=== PATIENT | male | born 1955 | race Caucasian/White ===

== ENCOUNTER → 2022-02-01 16:28 | Outpatient (BNVA) | payer MEDICARE, OTHER, SELFPAY | PROVIDERS: Family Provider Family Medicine; PCP Family Medicine; Visit Provider Family Medicine | DX: I48.91 Unspecified atrial fibrillation (principal) | CPT/HCPCS: 80053; 84443; 85025 ==

== ENCOUNTER 2022-02-08 14:01 | Outpatient (CLI) | payer MEDICARE, OTHER, SELFPAY ==
--- NOTE | 2022-02-08 14:15 | USCV_ITS ---
Reji Fuentes Age: 67 Gender: M : 1955 Exam Date: 02/08/2022 14:23 Ordering Phys: Haider Abraham MD Technologist: Cecilio Johnson Exam Location: [facility] [place] Indication: new afib, abnormal ekg BP: 134 / 72 HR: 96 Rhythm: Atrial fibrillation Technical Quality: Adequate MEASUREMENTS (Male / Female) Normal Values 2D ECHO LV Diastolic Diameter PLAX 2.7 cm 4.2 - 5.9 / 3.9 - 5.3 cm LV Systolic Diameter PLAX 1.7 cm IVS Diastolic Thickness 1.4 cm 0.6 - 1.0 / 0.6 - 0.9 cm IVS Systolic Thickness 1.8 cm LVPW Diastolic Thickness 1.2 cm 0.6 - 1.0 / 0.6 - 0.9 cm LVPW Systolic Thickness 1.1 cm LVOT Diameter 2.3 cm LV Ejection Fraction 2D Teich 67.9 % LV Ejection Fraction MOD 2C 68.3 % LV Ejection Fraction 2C AL 70.1 % LA Diameter 3.6 cm LA Width 3.8 cm LA Height 4.6 cm RA Width 3.7 cm RA Height 4.3 cm Aorta at Sinotubular Diameter 3.5 cm IVC Diameter 1.9 cm M-MODE Aortic Annulus Diameter 3.9 cm LA Ao Ratio MM 0.9 MV E Point Septal Separation 0.4 cm DOPPLER AV Peak Velocity 141.0 cm/s LVOT Peak Velocity 113.0 cm/s AV Area Cont Eq vti 2.9 cm squared AV Area Cont Eq pk 3.3 cm squared MV Peak Velocity 136.0 cm/s MV Area PHT 5.4 cm squared MV E' Velocity 62.8 cm/s Mitral E to MV E' Ratio 7.4 Mitral E to LV E' Lateral Ratio 8.1 Mitral E to LV E' Septal Ratio 6.9 TR Peak Velocity 215.0 cm/s TR Peak Gradient 18.5 mmHg TR Mean Velocity 170.3 cm/s TR Mean Gradient 11.9 mmHg TR Velocity Time Integral 44.8 cm Right Atrial Pressure 3.0 mmHg Pulmonary Artery Systolic Pressu 21.5 mmHg PV Peak Velocity 90.3 cm/s RV Acceleration Time 0.1 s RV Ejection Time 0.2 s RV AcT/ET 0.3 FINDINGS Left Ventricle Normal left ventricular size and systolic function, EF 69 %. No regional wall motion abnormalities. Mild left ventricular hypertrophy. Right Ventricle The right ventricle is normal in size and function. Right Atrium The right atrium is normal in size. Left Atrium The left atrium is normal in size. Mitral Valve Mild mitral valve regurgitation. Aortic Valve Thickened aortic valve. Tricuspid Valve No gross abnormalities noted Pulmonic Valve Pulmonic valve not well visualized. Pericardium Normal pericardium without effusion. Aorta Normal aortic annulus size. IVC Normal inferior vena cava. CONCLUSIONS Normal left ventricular size and systolic function, EF 69 %. No regional wall motion abnormalities. Mild left ventricular hypertrophy. Mild mitral valve regurgitation. Thickened aortic valve. There is no pericardial effusion. There are no intracardiac masses. No similar previous studies are available for comparison Dr Joe Tarango MD FAC (Electronically Signed) Final Date: 08 February 2022 20:14 S
== END 2022-02-08 14:02 | disposition home or self-care (01) ==
LOC: RAD 14:01
PROVIDERS: PCP Family Medicine; Visit Provider Family Medicine
DX: I48.91 Unspecified atrial fibrillation (principal); I08.0 Rheumatic disorders of both mitral and aortic valves
CPT/HCPCS: 93306

== ENCOUNTER → 2022-03-18 12:07 | Outpatient (BNVA) | payer MEDICARE, OTHER, SELFPAY | PROVIDERS: PCP Family Medicine; Visit Provider Internal Medicine | DX: I48.91 Unspecified atrial fibrillation (principal); I10 Essential (primary) hypertension; Z79.01 Long term (current) use of anticoagulants; F17.290 Nicotine dependence, other tobacco product, uncomplicated; R94.31 Abnormal electrocardiogram [ECG] [EKG] | CPT/HCPCS: 93005; 99204 ==

== ENCOUNTER → 2022-04-19 10:17 | Outpatient (BNVA) | payer MEDICARE, OTHER, SELFPAY | PROVIDERS: PCP Family Medicine; Visit Provider Nurse Practitioner Family | DX: I48.91 Unspecified atrial fibrillation (principal); R94.31 Abnormal electrocardiogram [ECG] [EKG] | CPT/HCPCS: 93005; 99214 ==

== ENCOUNTER → 2022-05-13 10:44 | Outpatient (BNVA) | payer MEDICARE, OTHER, SELFPAY | PROVIDERS: PCP Family Medicine; Visit Provider Dermatology | DX: R23.4 Changes in skin texture (principal) | CPT/HCPCS: 88305; 88312 ==

== ENCOUNTER 2022-05-21 10:18 | Day surgery (SDC) | payer MEDICARE, OTHER, SELFPAY ==
[2022-05-19 08:59] VITALS: BMI 40.1
--- NOTE | 2022-05-21 10:23 | USCV_ITS ---
Reji Fuentes Age: 67 Gender: M : 1955 Exam Date: 05/21/2022 12:00 Ordering Phys: Lore Diaz Technologist: MARLINE Exam Location: [facility] – [place], [place] Indication: afib BP: / HR: Rhythm: Sinus Technical Quality: MEASUREMENTS (Male / Female) Normal Values Medications Complications None Proc. Components After anesthesia team administered sedation, we proceeded with RANDALL probe insertion. FINDINGS Left Ventricle LV systolic function is normal Right Ventricle RV is grossly normal Right Atrium Dilated Left Atrium Dilated LA Appendage No left atrial appendage thrombus seen IA Septum Grossly normal Mitral Valve Structurally normal. Mild mitral regurgitation. Aortic Valve Structurally aortic valve. Mild aortic regurgitation. Tricuspid Valve Normal Pulmonic Valve Grossly normal Pericardium Normal Aorta Mild atherosclerotic plaque CONCLUSIONS LV systolic function is normal. Biatrial dilation No left atrial appendage thrombus seen Mild mitral regurgitation Mild aortic regurgitation Mild atherosclerotic plaque Jake Nick MD (Electronically Signed) Final Date: 23 May 2022 13:27 S
--- NOTE | 2022-05-21 10:24 | ECG_ITS ---
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 Measurements Intervals [place] Rate: 74 P: 0 MI: 0 QRS: -29 QRSD: 125 T: 5 QT: 449 QTc: 501 Interpretive Statements ATRIAL FIBRILLATION MODERATE INTRAVENTRICULAR CONDUCTION DELAY [105+ ms QRS DURATION, 80+ ms Q/S IN V1/V2, NO Q AND 60+ ms R IN I/aVL/V5/V6] PROLONGED QT INTERVAL No previous ECG available for comparison Electronically Signed On 05-21-2022 21:54:32 FLOORWORKER LASTING by Joe Tarango M.D. [id number]
[2022-05-21 10:35] VITALS: BP 158/80; PULSE 72; RESP 18; TEMP 36.4; O2SAT 98
[2022-05-21] MEDS: sodium chloride 0.9% 1,000 ML 30 ML IV (10:37)
--- NOTE | 2022-05-21 11:29 | P.HP_ITS ---
Same Day Surgery H&P Indication for Procedure/HPI DATE OF PROCEDURE: May 21, 2022 CHIEF COMPLAINT/INDICATIONFOR SURGICAL PROCEDURE: Atrial fibrillation PREOP DIAGNOSIS: Atrial fibrillation PLANNED PROCEDURE: Operation Date: 05/21/22 12:00 Proposed Procedures [place] [id number],I48.91(Not Applicable) - Keron Diana Cardioversion(Not Applicable) - Jake Nick M.D 67-year-old male with recent diagnosis of atrial fibrillation who is here for for RANDALL/cardioversion. Has shortness of breath and fatigue. EKG is showing atrial fibrillation with a heart rate of 74 bpm. ROS CONSTITUTIONAL: No fever chills weight loss or gain or night sweats. [] HEENT: Normocephalic, atraumatic.[] RESPIRATORY: No cough, sputum, hemoptysis or wheezing.[] CARDIOVASCULAR:Shortness of breath GI: no nausea vomiting diarrhea. [] RELIEF PHARMACIST: No numbness, tingling, weakness or loss of function in any part of the body. [] MUSCULOSKELETAL: No knee or joint pain or rashes. [] Medications/Allergies* Home Medications Medication Instructions Recorded Confirmed Type cetirizine 10 mg tablet 10 mg PO DAILY 02/17/22 05/20/22 History amlodipine 10 mg tablet 5 mg PO .QPM 04/19/22 05/20/22 History azelastine 137 mcg (0.1 %) nasal 2 spray intranasal DAILY PRN 04/19/22 05/21/22 History spray aerosol allergies multivit with minerals-folic 1 cap PO DAILY 05/19/22 05/20/22 History acid-lycopene 0.4 mg-600 mcg capsule (Men's Daily) Allergies/Adverse Reactions Allergy/AdvReac Type Severity Reaction Status Date / Time No Known Allergies Allergy Verified 05/21/22 10:49 Current Medications: Generic Name Dose Route Start Last Admin Trade Name Freq PRN Reason Stop Dose Admin Sodium Chloride 1,000 mls @ 30 mls/hr 05/21/22 10:30 05/21/22 10:37 Sodium Chloride 0.9% IV 05/22/22 10:29 30 mls/hr .Q24H ERIN Administration Pertinent History/Comorbid Conditions* Medical History (Updated 03/21/22 @ 14:31 by Jake Nick M.D) HTN (hypertension) Surgical History (Updated 04/06/21 @ 11:55 by Laine Gonzalez DO) No pertinent past surgical history Social History Smoking and tobacco status: former smoker (cigars) History of recent travel: No Pertinent Exam Findings alert, oriented x 3 and clear to auscultation bilaterally Irregularly irregular.Normal heart rate Conscious Sedation Assessment Anesthesia team administering sedation Recommendations Surgery/Procedure today (RANDALL/ Cardioversion) Coding Level of Care Code Acute Code for Chg Mimi
--- NOTE | 2022-05-21 11:42 | ANES.PREANE2 ---
Pre-Anesthetic Assessment Height/Weight: Height 1.93 m Weight 149.685 kg Temp Pulse Resp BP Pulse Ox O2 Del Method 97.6 F 72 18 158/80 98 05/21/22 10:35 05/21/22 10:35 05/21/22 10:35 05/21/22 10:35 05/21/22 10:35 05/21/22 10:35 Preop Diagnosis: Atrial fibrillation Operation Date: 05/21/22 12:00 Proposed Procedures [place] [id number],I48.91(Not Applicable) - Jake Nick M.D s Cardioversion(Not Applicable) - Jake Nick M.D Familial anesthetic complications: none Was Beta Barbara taken within 24 hours: Yes Was Clonidine taken within 24 hours: N/A Last intake: Intake Last Liquid Date 05/20/22 Last Liquid Time 20:00 Last Solid Date 05/20/22 Last Solid Time 20:00 Social No alcohol and No tobacco (history) Exam alert, oriented x 3, clear to auscultation bilaterally and regular rate & rhythm Airway Submandibular: within normal limits Cervical ROM: within normal limits Mallampati: Class I Dentition: full Pulmonary Sleep Apnea (CPAP) CV/HEM Atrial Fibrillation and Hypertension None reported Hepatic None reported GI None reported Metabolic Morbid Obesity [facility] [place] None reported Neuropsych None reported Anesthetic Plan ASA status: 3 Anesthesia: MAC Risk of > 500 ml blood loss (7ml/kg in children): No Medications/Allergies Home Medications Medication Instructions Recorded Confirmed Last Taken Type cetirizine 10 mg tablet 10 mg PO DAILY 02/17/22 05/20/22 05/21/22 08:00 History amiodarone 200 mg tablet 200 mg PO DIRECTED #90 tabs 03/18/22 05/20/22 05/21/22 08:00 Rx apixaban 5 mg tablet (Eliquis) 5 mg PO BID #180 tabs 03/18/22 05/20/22 05/21/22 08:00 Rx ciclopirox 0.77 % topical cream 1 applic topical BID 4 weeks #30 04/12/22 05/20/22 05/21/22 08:00 Rx grams triamcinolone acetonide 0.1 % 1 applic topical BID #80 grams 04/12/22 05/20/22 05/20/22 Rx topical ointment amlodipine 10 mg tablet 5 mg PO .QPM 04/19/22 05/20/22 05/20/22 History azelastine 137 mcg (0.1 %) nasal 2 spray intranasal DAILY PRN 04/19/22 05/21/22 2 Months Ago History spray aerosol allergies ~03/23/22 clobetasol 0.05 % topical ointment 1 applic topical BID 2 weeks #60 05/19/22 05/21/22 05/21/22 08:00 Rx grams fluoxetine 10 mg capsule (Prozac) 10 mg PO DAILY #30 caps 05/19/22 05/20/22 05/21/22 08:00 Rx multivit with minerals-folic 1 cap PO DAILY 05/19/22 05/20/22 05/20/22 History acid-lycopene 0.4 mg-600 mcg capsule (Men's Daily) Allergies Allergy/AdvReac Type Severity Reaction Status Date / Time No Known Allergies Allergy Verified 05/21/22 10:49 Current Medications Generic Name Dose Route Start Last Admin Trade Name Freq PRN Reason Stop Dose Admin Sodium Chloride 1,000 mls @ 30 mls/hr 05/21/22 10:30 05/21/22 10:37 Sodium Chloride 0.9% IV 05/22/22 10:29 30 mls/hr .Q24H ERIN Administration PFSH Anesthesia Medical History HTN (hypertension) Surgical History No pertinent past surgical history Social History Smoking and tobacco status: former smoker (cigars) Data Anesthesia Cardiac Studies: Echocardiogram 02/08/22
[2022-05-21 12:24] VITALS: BP 100/68; PULSE 46; RESP 12; TEMP 36.4; O2SAT 94
[2022-05-21 12:35] VITALS: BP 114/71; PULSE 43; RESP 16; O2SAT 94
--- NOTE | 2022-05-21 12:38 | ECG_ITS ---
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 Measurements Intervals [place] Rate: 42 P: 53 WI: 213 QRS: -28 QRSD: 108 T: -24 QT: 508 QTc: 427 Interpretive Statements SINUS BRADYCARDIA WITH FIRST DEGREE AV BLOCK BORDERLINE LEFT AXIS DEVIATION [QRS AXIS < -20] NONSPECIFIC T-WAVE ABNORMALITY Compared to ECG 05/21/2022 10:27:03 First degree AV block now present T-wave abnormality now present Atrial fibrillation no longer present Intraventricular conduction delay no longer present Prolonged QT interval no longer present Electronically Signed On 05-21-2022 21:57:46 FORMAL WEAR RENTAL CLERK by Joe Tarango M.D. [id number]
[2022-05-21 12:43] VITALS: BP 119/67; PULSE 43; RESP 18; O2SAT 96
--- NOTE | 2022-05-21 12:43 | ANE.PACU2 ---
Inpatient post-anesthesia follow up: Airway intact: Yes Vital signs: Temperature 97.6 F Pulse Rate 43 Respiratory Rate 16 Blood Pressure 114/71 Pulse Oximetry 94 Oxygen Delivery Me thod Nasal Cannula Oxygen Flow Rate 4.5 Fraction of Inspir ed Oxygen Hydration adequate: Yes Nausea and vomiting: No Pain level: 1 Mental status: Baseline
[2022-05-21 12:52] VITALS: BP 111/72; PULSE 44; RESP 18; O2SAT 96
--- NOTE | 2022-05-21 13:08 | PM.PROC ---
Procedure Note: Date of procedure: 05/21/22 Pre-procedure diagnosis: Atrial fibrillation Post-procedure diagnosis: other (Sinus bradycardia) Procedure: RANDALL/ Cardioversion: After anesthesia team sedated patient, we advanced the RANDALL probe. BERNA thrombus was ruled out. Patient then underwent successful synchronized DCCV at 200J and converted to sinus rhythm. Performing Provider: Jake Nick Complications: None Condition: stable Disposition: same day Coding Level of Care Code Acute Code for g Fwdorita
== END 2022-05-21 13:29 | disposition home or self-care (01) ==
PROVIDERS: PCP Family Medicine; Visit Provider Internal Medicine
PROC: (CPT 93312; principal; 2022-05-21 12:00)
PROC: 5A2204Z Restoration of Cardiac Rhythm, Single (ICD-10-PCS; 2022-05-21 12:00)
DX: I48.91 Unspecified atrial fibrillation (principal); I08.0 Rheumatic disorders of both mitral and aortic valves; I10 Essential (primary) hypertension; Z79.01 Long term (current) use of anticoagulants; Z87.891 Personal history of nicotine dependence
CPT/HCPCS: 92960; 93005; 93312; 93320; 93325; J2704; J7030

== ENCOUNTER → 2022-05-27 15:12 | Outpatient (BNVA) | payer MEDICARE, OTHER, SELFPAY | PROVIDERS: PCP Family Medicine; Visit Provider Nurse Practitioner Family | DX: I48.91 Unspecified atrial fibrillation (principal); I10 Essential (primary) hypertension; Z87.891 Personal history of nicotine dependence; Z79.01 Long term (current) use of anticoagulants | CPT/HCPCS: 93005; 99214 ==

== ENCOUNTER → 2022-06-16 13:33 | Outpatient (BNVA) | payer MEDICARE, OTHER, SELFPAY | PROVIDERS: PCP Family Medicine; Visit Provider Specialist | DX: I48.91 Unspecified atrial fibrillation (principal); I10 Essential (primary) hypertension; Z79.01 Long term (current) use of anticoagulants; F17.290 Nicotine dependence, other tobacco product, uncomplicated | CPT/HCPCS: 99214 ==

== ENCOUNTER 2022-08-17 11:32 | Outpatient (CLI) | payer MEDICARE, OTHER, SELFPAY ==
--- NOTE | 2022-08-17 11:40 | XR_ITS ---
WS: [id number] Exam: XR foot RT 2V [id number] Date/Time of Exam: 08/17/2022 11:52 AM Reason For Exam: right foot and lateral heel pain No acute fracture or dislocation. Deformity of the distal tuft of the great toe probably secondary to trauma. Degenerative change in the DIP joint of the great toe. Large heel spurs. No soft tissue fore ign bodies are seen. XR/XR foot RT 2V [id number] IMPRESSION: 1. Degenerative change at the DIP joint of the great toe. Also deformity of the distal tuft of the great toe suggesting previous trauma. 2. No acute fracture. 3. Large heel spurs.
== END 2022-08-17 11:33 | disposition home or self-care (01) ==
LOC: RAD 11:36
PROVIDERS: PCP Family Medicine; Visit Provider Family Medicine
DX: M79.671 Pain in right foot (principal); M20.61 Acquired deformities of toe(s), unspecified, right foot; M77.31 Calcaneal spur, right foot; M25.871 Other specified joint disorders, right ankle and foot
CPT/HCPCS: 73620

== ENCOUNTER → 2022-08-25 13:51 | Outpatient (BNVA) | payer MEDICARE, OTHER, SELFPAY | PROVIDERS: PCP Family Medicine; Referring Provider Family Medicine; Visit Provider Podiatrist Foot & Ankle Surgery | DX: M72.2 Plantar fascial fibromatosis (principal); M21.6X1 Other acquired deformities of right foot | CPT/HCPCS: 73630; 99203 ==

== ENCOUNTER → 2022-09-17 10:24 | Outpatient (BNVA) | payer MEDICARE, OTHER, SELFPAY | PROVIDERS: PCP Family Medicine; Visit Provider Internal Medicine | DX: I48.91 Unspecified atrial fibrillation (principal); I10 Essential (primary) hypertension; Z79.01 Long term (current) use of anticoagulants; Z87.891 Personal history of nicotine dependence | CPT/HCPCS: 99214 ==

== ENCOUNTER → 2023-02-01 15:56 | Outpatient (BNVA) | payer MEDICARE, OTHER, SELFPAY | PROVIDERS: PCP Family Medicine; Visit Provider Registered Nurse Neonatal Intensive Care | DX: R52 Pain, unspecified (principal) | CPT/HCPCS: 87400; 87426 ==

== ENCOUNTER → 2023-02-03 11:43 | Outpatient (BNVA) | payer MEDICARE, OTHER, SELFPAY | PROVIDERS: PCP Family Medicine; Visit Provider Internal Medicine Cardiovascular Disease | DX: I10 Essential (primary) hypertension (principal); I48.91 Unspecified atrial fibrillation; Z79.01 Long term (current) use of anticoagulants; Z87.891 Personal history of nicotine dependence | CPT/HCPCS: 99214 ==

== ENCOUNTER 2023-02-28 20:56 | Emergency (ER) | payer MEDICARE, OTHER, SELFPAY ==
[2023-02-28 21:16] VITALS: BP 158/77; PULSE 53; RESP 16; TEMP 36.9; O2SAT 95; BMI 40.1
[2023-02-28 21:23] LABS: Basophils # 0.1 10^3/uL (0.0-0.1); Basophils % 1.1 %; Eosinophils # 0.2 10^3/uL (0.0-0.8); Eosinophils % 3.2 %; Hematocrit 42.4 % (37-53); Lymphocytes # 2.4 10^3/uL (0.8-4.8); Lymphocytes % 37.3 %; Mean Corpuscular Hemoglobin 32.2 pg (27-33); Mean Corpuscular Volume 94.9 fl (82-101); Mean Platelet Volume 10.7 fL (7.4-10.4); Monocytes # 0.6 10^3/uL (0.2-0.9); Monocytes % 8.9 %; Neutrophils # 3.22 10^3/uL (1.8-7.7); Neutrophils % 49.2 %; Nucleated Red Blood Cells % 0 %; Platelet Count 195 10^3/cmm (157-399); Red Blood Count 4.47 10^6/uL (3.85-5.65); Red Cell Distribution Width 12.3 % (12.1-15.1); White Blood Count 6.54 10^3/uL (3.29-11.43)
[2023-02-28 21:34] LABS: INR 1.05 (0.8-1.2)
[2023-02-28 21:40] LABS: Alanine Aminotransferase 21 U/L (0-41); Albumin Level 4.2 g/dL (3.5-5.2); Alkaline Phosphatase 78 U/L (40-130); Anion Gap 14.6 (5-19); Aspartate Amino Transferase 18 U/L (0-40); Blood Urea Nitrogen 16 mg/dL (8-23); Calcium 9.1 mg/dL (8.5-10.5); Carbon Dioxide 25 mmol/L (22-29); Chloride 105 mmol/L (98-107); Glomerular Filtration Rate 83.4 mL/min (90-130); Glucose 114 mg/dL (65-115); Osmolality Calculated 294 mOsm/kg (285-295); Potassium 3.6 mmol/L (3.5-5.1); Sodium 141 mmol/L (136-145); Total Bilirubin 0.3 mg/dL (0.15-1.2); Total Protein 7.2 g/dL (6.6-8.7)
--- NOTE | 2023-02-28 21:52 | W.ED.MALEGU ---
Documented by User: JEANNETTE Moreno 03/01/23 01:56 HPI - Male Genitourinary General: Chief complaint: Urogenital-Male Stated complaint: blood in urine Time Seen by Provider: 02/28/23 21:18 History of Present Illness: Patient is a 68-year-old male with a past medical history significant for hypertension, paroxysmal atrial fibrillation, and chronic anticoagulation with Eliquis who presents to the emergency department for evaluation of hematuria. Patient reports that at approximately 1800 when he was voiding he noticed a large amount of blood in his urine. Patient was concerned so he decided to present to the emergency department for further management/evaluation. Patient is currently completely asymptomatic and he denies fever, chills, chest pain, shortness of breath, palpitations, abdominal pain, constipation, diarrhea, dysuria, nausea, vomiting, diaphoresis, lightheadedness, dizziness, or any other associated symptoms. No other complaints at this time. Associated symptoms: Reports hematuria; Deny dysuria, nausea or vomiting Review of Systems General: Reports: 10 or more systems reviewed and unremarkable except in HPI and below Const: Denies: fever(s) or chills Eyes: Denies: change in vision or blurry vision ENMT: Denies: throat pain, ear or mastoid pain, ear discharge, nasal discharge or nasal congestion Card: Denies: chest pain, palpitations, lightheadedness or syncope Resp: Denies: dyspnea, productive cough, non-productive cough or wheezing GI: Denies: abdominal pain, nausea, vomiting, diarrhea or constipation : Reports: hematuria; Denies: flank pain, difficulty urinating or dysuria Musc: Denies: neck pain, back pain, extremity pain, extremity swelling or joint pain Skin/Breast: Denies: rash Neuro: Denies: headache(s), dizziness or vertigo Psych: Denies: anxiety or depression PFSH ED PFSH: Medical History Anticoagulation adequate with anticoagulant therapy HTN (hypertension) Surgical History No pertinent past surgical history Social History Smoking and tobacco/nicotine status: former use of tobacco/nicotine (cigars) Alcohol intake: never Substance/Drug Use: never Physical Exam Const: COMMON NORMALS: no acute distress, average body habitus, patient oriented x3 and alert HENMT: COMMON NORMALS: normocephalic and atraumatic HEAD & SCALP: normocephalic and atraumatic Eye: COMMON NORMALS: Equal, round and reactive pupils present, EOMs intact bilaterally, conjunctivae normal and no scleral icterus CONJUNCTIVA: Yes conjunctivae normal PUPIL: Yes Equal, round and reactive pupils present Neck/C-Spine: COMMON NORMALS: full ROM, no lymphadenopathy and no meningeal signs Chest: COMMONS NORMALS: normal inspection of the chest and normal palpation of entire chest wall Resp: COMMON NORMALS: normal respiratory effort, No retractions, No use of accessory muscles and clear to auscultation bilaterally AUSCULTATION: clear to auscultation bilaterally Cardio: COMMON NORMALS: regular rate, regular rhythm, No gallops present (Cardio), No clicks present (Cardio), No murmurs present (Cardio) and No rub (Cardio) RATE: regular rate RHYTHM: regular rhythm GI: COMMON NORMALS: Normal to inspection, nondistended, normoactive bowel sounds present, Soft to palpation and non-tender PALPATION: Yes Soft to palpation Back/Pelvis: OTHER: No CVA tenderness bilaterally Extremity: OTHER: Moving bilateral upper and lower extremities without weakness or deficit. Neuro: COMMON NORMALS: patient oriented x3 SENSORIUM/ORIENTATION: Yes alert MENINGEAL SIGNS: Yes no meningeal signs OTHER: Sensation intact the bilateral upper and lower extremities. Patient is alert and oriented x 4. No focal neurological deficits noted on examination. Course Vital Signs: Vital signs: Vital Signs Temperature 98.5 F 02/28/23 21:16 Pulse Rate 64 03/01/23 03:17 Respiratory Rate 20 H 03/01/23 03:17 Blood Pressure 190/84 03/01/23 03:17 Pulse Oximetry 95 03/01/23 03:17 Oxygen Delivery Me thod Room Air 03/01/23 02:38 MDM - Male Medical Decision Making Patient is a 68-year-old male with a past medical history significant for hypertension, paroxysmal atrial fibrillation, and chronic anticoagulation with Eliquis who presents to the emergency department for evaluation of hematuria. On physical examination patient is nontoxic and in no acute distress. CBC showed no evidence of leukocytosis. Initial hemoglobin is 14.4. PT is 14.0. INR is 1.05. CMP unremarkable. Urinalysis showed too many red blood cells to count. CT of the abdomen and pelvis with contrast showed the bladder is mildly distended. One large and 1 small diverticulum off the bladder. 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 Focal calcification in the lateral right wall of the bladder. Descending colon and sigmoid colon diverticulosis. No evidence for diverticulitis. I initially consulted Dr. Wolfe the surgeon on-call for the 1.7 x 1.3 cm lipoma who recommended admitting the patient to medical so he could see the patient in the morning. I attempted to admit to our hospitalist, however, the hospitalist did not feel comfortable admitting to [facility] without urology on board. I consulted Dr. Giron, the urologist at [facility], who did not think admission was necessary and recommended outpatient follow-up in his office. Before the patient could be discharged he became hypotensive with a blood pressure of 75/44. A repeat CBC showed a hemoglobin of 13.3. Patient was given 1 L of normal saline and pressures return to 159/80. Given the patient's bleeding and period of hemodynamic instability I will attempt to transfer to [facility]. I was notified by [facility] that they have no beds. I will attempt to transfer to [facility]. I paged the hospitalist at [facility]. Currently waiting callback. At this point in time plan of care was passed over to my colleague Dr. Springer in the emergency department. Differential diagnosis includes but is not limited to bladder cancer, urinary tract infection, nephrolithiasis, anemia, electrolyte abnormality Lab Data 03/01/23 00:40 02/28/23 21:18 Radiology Impressions Abdomen/Pelvis CT 02/28/23 21:59 IMPRESSION: 1. The bladder is mildly distended. One large and 1 small diverticulum off the bladder. 2. 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 3. Focal calcification in the lateral right wall of the bladder. 4. Descending colon and sigmoid colon diverticulosis. No evidence for diverticulitis. 5. Incidental/nonacute findings are listed in the report. COMMENTS: Consistent with the [place] [employer]'s Incidental Findings Committee white paper (J Am Letty Radiol 2018): Any incidental renal lesion less than 1 cm or classified as too small to characterize, or any incidental cystic renal lesion characterized as simple-appearing, is likely benign. No follow-up imaging is recommended for these lesions per consensus recommendations based on imaging criteria. Laboratory Results WBC 6.88 10^3/uL (3.29-11.43) 03/01/23 00:40 RBC 4.15 10^6/uL (3.85-5.65) 03/01/23 00:40 Hgb 13.30 g/dL (11.27-16.99) 03/01/23 00:40 Hct 38.9 % (37-53) 03/01/23 00:40 MCV 93.7 fl (82-101) 03/01/23 00:40 MCH 32.0 pg (27-33) 03/01/23 00:40 MCHC 34.2 g/dL (30-55) 03/01/23 00:40 RDW 12.4 % (12.1-15.1) 03/01/23 00:40 Plt Count 187 10^3/cmm (157-399) 03/01/23 00:40 MPV 10.4 fL (7.4-10.4) 03/01/23 00:40 Neut % (Auto) 51.1 % 03/01/23 00:40 Lymph % (Auto) 36.5 % 03/01/23 00:40 Gregg % (Auto) 8.7 % 03/01/23 00:40 Eos % (Auto) 2.8 % 03/01/23 00:40 Baso % (Auto) 0.6 % 03/01/23 00:40 Neut # (Auto) 3.52 10^3/uL (1.8-7.7) 03/01/23 00:40 Lymph # (Auto) 2.5 10^3/uL (0.8-4.8) 03/01/23 00:40 Gregg # (Auto) 0.6 10^3/uL (0.2-0.9) 03/01/23 00:40 Eos # (Auto) 0.2 10^3/uL (0.0-0.8) 03/01/23 00:40 Baso # (Auto) 0.0 10^3/uL (0.0-0.1) 03/01/23 00:40 Nucleated RBC % (auto) 0 % 03/01/23 00:40 Nucleated RBCs # 0.0 /100WBC 03/01/23 00:40 PT 14.00 SECONDS (12.1-14.9) 02/28/23 21:18 INR 1.05 (0.8-1.2) 02/28/23 21:18 Sodium 141 mmol/L (136-145) 02/28/23 21:18 Potassium 3.6 mmol/L (3.5-5.1) 02/28/23 21:18 Chloride 105 mmol/L (98-107) 02/28/23 21:18 Carbon Dioxide 25 mmol/L (22-29) 02/28/23 21:18 Anion Gap 14.6 (5-19) 02/28/23 21:18 BUN 16 mg/dL (8-23) 02/28/23 21:18 Creatinine 0.9 mg/dL (0.7-1.2) 02/28/23 21:18 GFR Calculation 83.4 mL/min (90-130) L 02/28/23 21:18 Glucose 114 mg/dL (65-115) 02/28/23 21:18 Calculated Osmolality 294 mOsm/kg (285-295) 02/28/23 21:18 Calcium 9.1 mg/dL (8.5-10.5) 02/28/23 21:18 Total Bilirubin 0.3 mg/dL (0.15-1.2) 02/28/23 21:18 AST 18 U/L (0-40) 02/28/23 21:18 ALT 21 U/L (0-41) 02/28/23 21:18 Alkaline Phosphatase 78 U/L (40-130) 02/28/23 21:18 Total Protein 7.2 g/dL (6.6-8.7) 02/28/23 21:18 Albumin 4.2 g/dL (3.5-5.2) 02/28/23 21:18 Globulin 3.0 g/dL (1.3-4.6) 02/28/23 21:18 Urine Color Red (Yellow) A 02/28/23 21:25 Urine Appearance Turbid (CLEAR) A 02/28/23 21:25 Urine pH 7 (5-7) 02/28/23 21: Ur Specific [place] 1.010 (1.005-1.030) 02/28/23 21:25 Urine Protein 3+ (Negative) H 02/28/23 21:25 Urine Glucose (UA) Norm (Normal) 02/28/23 21:25 Urine Ketones Negative (Negative) 02/28/23 21:25 Urine Blood 3+ (Negative) H 02/28/23 21:25 Urine Nitrate Negative (Negative) 02/28/23 21: Urine Bilirubin Neg (Negative) 02/28/23 21:25 Urine Urobilinogen Neg mg/dL (Negative) 02/28/23 21:25 Ur Leukocyte Esterase Trace (Negative) H 02/28/23 21:25 Urine RBC Too numerous to cnt /hpf (0-2) H 02/28/23 21:25 Urine WBC 5-10 /hpf (0-5) H 02/28/23 21:25 Ur Squamous Epith Cells None /hpf (0-5) 02/28/23 21: Amorphous Sediment Not Reportable 02/28/23 21:25 Urine Bacteria 1+ /hpf (NONE) H 02/28/23 21:25 All radiology interpretation(s) finalized by discharge Discharge Plan Discharge Patient Disposition: Xfer Short-Term Hosp Clinical Impression: Hematuria, Abnormal CT of the abdomen Condition: Stable Prescriptions: No Action cetirizine 10 mg tablet 10 mg PO DAILY azelastine 137 mcg (0.1 %) aerosol,spray 2 spray intranasal DAILY PRN (Reason: allergies) amiodarone 100 mg tablet 100 mg PO DAILY Qty: 90 3RF Rx Instructions: Dose change on 09/17/22 PreserVision AREDS 2 Plus MV 200 mcg-15 mcg- 5 mg-1 mg capsule PO metoprolol tartrate 25 mg tablet 25 mg PO BID Qty: 60 5RF doxycycline monohydrate 100 mg capsule 100 mg PO BID Qty: 14 0RF Eliquis 5 mg tablet 5 mg PO BID Qty: 180 3RF fluoxetine [Prozac] 10 mg capsule 10 mg PO DAILY Qty: 30 11RF amlodipine 10 mg tablet See Rx Instructions .ROUTE .COMPLEX Qty: 90 3RF Dose Instruction: TAKE 1 TABLET BY MOUTH EVERY DAY FOR HYPERTENSION Rx Instructions: TAKE 1 TABLET BY MOUTH EVERY DAY FOR HYPERTENSION lisinopril 10 mg tablet See Rx Instructions .ROUTE .COMPLEX Qty: 90 3RF Dose Instruction: TAKE 1 TABLET BY MOUTH EVERY DAY Rx Instructions: TAKE 1 TABLET BY MOUTH EVERY DAY Men's Daily 0.4-600 mg-mcg Capsule 1 cap PO DAILY Discharge Orders: Discharge ED (Routine); Ordered 03/01/23 Ordered By: Maverick Hathaway Referrals: Juan José Wolfe DO [Physician] - Roland Giron MD [Referring] - Haider Abraham MD [Primary Care Provider] - Coding Level of Care Code ED Electric 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 Car Operator for Chg Fwd Documented by User: Samuel Springer MD 03/01/23 03:43 HPI - Male Genitourinary General: Chief complaint: Urogenital-Male Stated complaint: blood in urine Time Seen by Provider: 02/28/23 21:18 PFSH ED PFSH: Medical History Anticoagulation adequate with anticoagulant therapy HTN (hypertension) Surgical History No pertinent past surgical history Social History Smoking and tobacco/nicotine status: former use of tobacco/nicotine (cigars) Alcohol intake: never Substance/Drug Use: never Course Vital Signs: Vital signs: Vital Signs Temperature 98.5 F 02/28/23 21:16 Pulse Rate 64 03/01/23 03:17 Respiratory Rate 20 H 03/01/23 03:17 Blood Pressure 190/84 03/01/23 03:17 Pulse Oximetry 95 03/01/23 03:17 Oxygen Delivery Me thod Room Air 03/01/23 02:38 MDM - Male Medical Records I reviewed the patient's medical records. Lab Data I reviewed the patient's lab results. 03/01/23 00:40 02/28/23 21:18 Radiology Impressions Abdomen/Pelvis CT 02/28/23 21:59 IMPRESSION: 1. The bladder is mildly distended. One large and 1 small diverticulum off the bladder. 2. 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 3. Focal calcification in the lateral right wall of the bladder. 4. Descending colon and sigmoid colon diverticulosis. No evidence for diverticulitis. 5. Incidental/nonacute findings are listed in the report. COMMENTS: Consistent with the [place] [employer]'s Incidental Findings Committee white paper (J Am Letty Radiol 2018): Any incidental renal lesion less than 1 cm or classified as too small to characterize, or any incidental cystic renal lesion characterized as simple-appearing, is likely benign. No follow-up imaging is recommended for these lesions per consensus recommendations based on imaging criteria. Laboratory Results WBC 6.88 10^3/uL (3.29-11.43) 03/01/23 00:40 RBC 4.15 10^6/uL (3.85-5.65) 03/01/23 00:40 Hgb 13.30 g/dL (11.27-16.99) 03/01/23 00:40 Hct 38.9 % (37-53) 03/01/23 00:40 MCV 93.7 fl (82-101) 03/01/23 00:40 MCH 32.0 pg (27-33) 03/01/23 00:40 MCHC 34.2 g/dL (30-55) 03/01/23 00:40 RDW 12.4 % (12.1-15.1) 03/01/23 00:40 Plt Count 187 10^3/cmm (157-399) 03/01/23 00:40 MPV 10.4 fL (7.4-10.4) 03/01/23 00:40 Neut % (Auto) 51.1 % 03/01/23 00:40 Lymph % (Auto) 36.5 % 03/01/23 00:40 Gregg % (Auto) 8.7 % 03/01/23 00:40 Eos % (Auto) 2.8 % 03/01/23 00:40 Baso % (Auto) 0.6 % 03/01/23 00:40 Neut # (Auto) 3.52 10^3/uL (1.8-7.7) 03/01/23 00:40 Lymph # (Auto) 2.5 10^3/uL (0.8-4.8) 03/01/23 00:40 Gregg # (Auto) 0.6 10^3/uL (0.2-0.9) 03/01/23 00:40 Eos # (Auto) 0.2 10^3/uL (0.0-0.8) 03/01/23 00:40 Baso # (Auto) 0.0 10^3/uL (0.0-0.1) 03/01/23 00:40 Nucleated RBC % (auto) 0 % 03/01/23 00:40 Nucleated RBCs # 0.0 /100WBC 03/01/23 00:40 PT 14.00 SECONDS (12.1-14.9) 02/28/23 21:18 INR 1.05 (0.8-1.2) 02/28/23 21:18 Sodium 141 mmol/L (136-145) 02/28/23 21:18 Potassium 3.6 mmol/L (3.5-5.1) 02/28/23 21:18 Chloride 105 mmol/L (98-107) 02/28/23 21:18 Carbon Dioxide 25 mmol/L (22-29) 02/28/23 21:18 Anion Gap 14.6 (5-19) 02/28/23 21:18 BUN 16 mg/dL (8-23) 02/28/23 21:18 Creatinine 0.9 mg/dL (0.7-1.2) 02/28/23 21:18 GFR Calculation 83.4 mL/min (90-130) L 02/28/23 21:18 Glucose 114 mg/dL (65-115) 02/28/23 21:18 Calculated Osmolality 294 mOsm/kg (285-295) 02/28/23 21:18 Calcium 9.1 mg/dL (8.5-10.5) 02/28/23 21:18 Total Bilirubin 0.3 mg/dL (0.15-1.2) 02/28/23 21:18 AST 18 U/L (0-40) 02/28/23 21:18 ALT 21 U/L (0-41) 02/28/23 21:18 Alkaline Phosphatase 78 U/L (40-130) 02/28/23 21:18 Total Protein 7.2 g/dL (6.6-8.7) 02/28/23 21:18 Albumin 4.2 g/dL (3.5-5.2) 02/28/23 21:18 Globulin 3.0 g/dL (1.3-4.6) 02/28/23 21:18 Urine Color Red (Yellow) A 02/28/23 21:25 Urine Appearance Turbid (CLEAR) A 02/28/23 21:25 Urine pH 7 (5-7) 02/28/23 21:25 Ur Specific [place] 1.010 (1.005-1.030) 02/28/23 21:25 Urine Protein 3+ (Negative) H 02/28/23 21:25 Urine Glucose (UA) Norm (Normal) 02/28/23 21:25 Urine Ketones Negative (Negative) 02/28/23 21:25 Urine Blood 3+ (Negative) H 02/28/23 21:25 Urine Nitrate Negative (Negative) 02/28/23 21:25 Urine Bilirubin Neg (Negative) 02/28/23 21:25 Urine Urobilinogen Neg mg/dL (Negative) 02/28/23 21:25 Ur Leukocyte Esterase Trace (Negative) H 02/28/23 21:25 Urine RBC Too numerous to cnt /hpf (0-2) H 02/28/23 21:25 Urine WBC 5-10 /hpf (0-5) H 02/28/23 21:25 Ur Squamous Epith Cells None /hpf (0-5) 02/28/23 21:25 Amorphous Sediment Not Reportable 02/28/23 21:25 Urine Bacteria 1+ /hpf (NONE) H 02/28/23 21:25 Discharge Plan Discharge Patient Disposition: Xfer Short-Term Hosp Clinical Impression: Hematuria, Abnormal CT of the abdomen Condition: Stable Prescriptions: No Action cetirizine 10 mg tablet 10 mg PO DAILY azelastine 137 mcg (0.1 %) aerosol,spray 2 spray intranasal DAILY PRN (Reason: allergies) amiodarone 100 mg tablet 100 mg PO DAILY Qty: 90 3RF Rx Instructions: Dose change on 09/17/22 PreserVision AREDS 2 Plus MV 200 mcg-15 mcg- 5 mg-1 mg capsule PO metoprolol tartrate 25 mg tablet 25 mg PO BID Qty: 60 5RF doxycycline monohydrate 100 mg capsule 100 mg PO BID Qty: 14 0RF Eliquis 5 mg tablet 5 mg PO BID Qty: 180 3RF fluoxetine [Prozac] 10 mg capsule 10 mg PO DAILY Qty: 30 11RF amlodipine 10 mg tablet See Rx Instructions .ROUTE .COMPLEX Qty: 90 3RF Dose Instruction: TAKE 1 TABLET BY MOUTH EVERY DAY FOR HYPERTENSION Rx Instructions: TAKE 1 TABLET BY MOUTH EVERY DAY FOR HYPERTENSION lisinopril 10 mg tablet See Rx Instructions .ROUTE .COMPLEX Qty: 90 3RF Dose Instruction: TAKE 1 TABLET BY MOUTH EVERY DAY Rx Instructions: TAKE 1 TABLET BY MOUTH EVERY DAY Men's Daily 0.4-600 mg-mcg Capsule 1 cap PO DAILY Discharge Orders: Discharge ED (Routine); Ordered 03/01/23 Ordered By: Maverick Hathaway Referrals: Juan José Wolfe DO [Physician] - Roland Giron MD [Referring] - Haider Abraham MD [Primary Care Provider] - Coding Level of Care Code ED Electric Freight Car Operator for Dorothea Le
[2023-02-28 21:56] LABS: Add Urine Culture? Yes; Add Urine Microscopic? YES; Bacteria Urine 1+ /hpf; Bilirubin Urine Neg (Negative); Blood Urine 3+ (Negative); Glucose Urine UA Norm (Normal); Ketones Urine Negative (Negative); Leukocyte Esterase Urine Trace (Negative); Nitrate Urine Negative (Negative); Protein Urine 3+ (Negative); RBC Urine TOO NUMEROUS TO CNT /hpf (0-2); Urine Appearance Turbid (CLEAR); Urine Color Red (Yellow); Urobilinogen Urine Neg (Negative); pH Urine 7 (5-7)
--- NOTE | 2023-02-28 21:59 | CTR_ITS ---
PROCEDURE INFORMATION: Exam: CT Abdomen And Pelvis With Contrast Exam date and time: 02/28/2023 10:15 PM Age: 68 years old Clinical indication: Other: Hematuria; Additional info: Large amount of hematuria TECHNIQUE: Imaging protocol: Computed tomography of the abdomen and pelvis with contrast. Radiation optimization: All CT scans at this facility use at least one of these dose optimization techniques: automated exposure control; mA and/or kV adjustment per patient size (includes targeted exams where dose is matched to clinical indication); or iterative reconstruction. Contrast material: OMNI 350; Contrast volume: 100 ml; Contrast route: INTRAVENOUS (IV); REPORTING DATA: Count of CT and Cardiac NM exams in prior 12 months: This patient has received 0 known CTs and 0 known cardiac nuclear medicine studies in the 12 months prior to the current study. COMPARISON: No relevant prior studies available. RADIATION DOSE METRICS: Total DLP (mGy-cm): 1343.18 FINDINGS: Lungs: Visualized lungs are clear. Pleural spaces: No pleural effusion. Heart: Visualized portions of the heart are moderately enlarged. Coronary arteries: Mild atherosclerotic calcification in the visualized coronary arteries. Liver: The liver is unremarkable. Gallbladder and bile ducts: The gallbladder is unremarkable. No biliary ductal dilatation. Pancreas: The pancreas is unremarkable. No pancreatic ductal dilatation. Spleen: The spleen is unremarkable. Adrenal glands: The right and left adrenal glands are unremarkable. Kidneys and ureters: Multiple subcentimeter hypodense foci in the right kidney that are too small to characterize, however likely represent small cysts. Simple cyst in the left kidney measuring 2.4 cm. Stomach and bowel: The stomach is unremarkable for the degree of distension. 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 Numerous diverticula in the descending colon and sigmoid colon. No evidence for diverticulitis. No acute abnormality in the small bowel. Appendix: The appendix is visualized and is unremarkable. No findings to suggest acute appendicitis. Intraperitoneal space: No free intraperitoneal air. No ascites. No loculated fluid collections to suggest an abscess. Vasculature: Mild atherosclerotic changes in the visualized arteries. No evidence for aortic aneurysm or aortic dissection. Hepatic veins, portal veins, splenic vein, and SMV are patent. Lymph nodes: No lymphadenopathy. Urinary bladder: Focal calcification in the latter right wall of the bladder. The bladder is mildly distended. One large and 1 small diverticulum off the bladder, the larger measures 6.9 x 5.0 cm (series 3, image 68). Reproductive: Unremarkable as visualized. Bones/joints: Degenerative changes in the spine, sacroiliac joints, and hips. Soft tissues: Unremarkable. CT/CT abdomen pelvis w con* [id number] IMPRESSION: 1. The bladder is mildly distended. One large and 1 small diverticulum off the bladder. 2. 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 3. Focal calcification in the lateral right wall of the bladder. 4. Descending colon and sigmoid colon diverticulosis. No evidence for diverticulitis. 5. Incidental/nonacute findings are listed in the report. COMMENTS: Consistent with the [place] [employer]'s Incidental Findings Committee white paper (J Am Letty Radiol 2018): Any incidental renal lesion less than 1 cm or classified as too small to characterize, or any incidental cystic renal lesion characterized as simple-appearing, is likely benign. No follow-up imaging is recommended for these lesions per consensus recommendations based on imaging criteria.
[2023-02-28] MEDS: iohexol 350 mg/mL 500 mL Btl (per mL) IV (22:24)
[2023-02-28 22:52] VITALS: BP 172/86; PULSE 47; RESP 18; O2SAT 97
[2023-03-01] VITALS (109 sets, daily range): BP systolic 75–190; BP diastolic 44–113; PULSE 42–98; RESP 14–22; O2SAT 91–98
[2023-03-01 00:44] LABS: Basophils % 0.6 %; Eosinophils # 0.2 10^3/uL (0.0-0.8); Eosinophils % 2.8 %; Hematocrit 38.9 % (37-53); Lymphocytes # 2.5 10^3/uL (0.8-4.8); Lymphocytes % 36.5 %; Mean Corpuscular HGB Conc 34.2 g/dL (30-55); Mean Corpuscular Volume 93.7 fl (82-101); Mean Platelet Volume 10.4 fL (7.4-10.4); Monocytes # 0.6 10^3/uL (0.2-0.9); Monocytes % 8.7 %; Neutrophils # 3.52 10^3/uL (1.8-7.7); Neutrophils % 51.1 %; Nucleated Red Blood Cells % 0 %; Platelet Count 187 10^3/cmm (157-399); Red Blood Count 4.15 10^6/uL (3.85-5.65); Red Cell Distribution Width 12.4 % (12.1-15.1); White Blood Count 6.88 10^3/uL (3.29-11.43)
[2023-03-01] MEDS: sodium chloride 0.9% 1,000 ML 999 ML IV (00:45)
[2023-03-01 03:50] LABS: Basophils % 0.5 %; Eosinophils # 0.1 10^3/uL (0.0-0.8); Eosinophils % 1.1 %; Hematocrit 40.8 % (37-53); Lymphocytes # 1.3 10^3/uL (0.8-4.8); Lymphocytes % 15.8 %; Mean Corpuscular HGB Conc 34.3 g/dL (30-55); Mean Corpuscular Volume 93.4 fl (82-101); Mean Platelet Volume 10.6 fL (7.4-10.4); Monocytes # 0.4 10^3/uL (0.2-0.9); Monocytes % 4.1 %; Neutrophils # 6.64 10^3/uL (1.8-7.7); Neutrophils % 78.4 %; Nucleated Red Blood Cells % 0 %; Platelet Count 179 10^3/cmm (157-399); Red Blood Count 4.37 10^6/uL (3.85-5.65); Red Cell Distribution Width 12.2 % (12.1-15.1); White Blood Count 8.47 10^3/uL (3.29-11.43)
--- NOTE | 2023-03-01 04:53 | PC.NURSE ---
per previous RN - 2400 mL output prior to takeover by RUIZ Carroll. Current total output at this time - 4100 mL.
--- NOTE | 2023-03-01 05:59 | PC.NURSE ---
1950 mL of pink clear urine dumped from veloz bag at 0602. 6000 mL total input at this time. 3rd bag of CBI fluid (3 L bag) hung at this time.
--- NOTE | 2023-03-01 06:42 | PC.NURSE ---
0630 - 700 mL removed from catheter bag.
--- NOTE | 2023-03-01 09:32 | DCPLANNER ---
Message sent to Gen surg for a referral - Lipoma of the duodenum.
--- NOTE | 2023-03-01 16:05 | PC.NURSE ---
PT OVERALL HAD 9 BAGS OF 3L CBI NS DURING THE DAY SHIFT. PT HAD TOTAL 27,000ML OUTPUT DURING THIS TIME TOO. UPON TRANSFER, PT REQUIRES CBI AND EMS CREW GIVEN 4 BAGS OF CBI NS FOR THE TRANSFER.
--- NOTE | 2023-03-02 08:32 | DCPLANNER ---
I sent referral to [facility] in [place] on 03/02/23 at 0833. I faxed entire chart to [phone] the clinics phone number is [phone].
== END 2023-03-01 15:55 | disposition short-term general hospital (02) ==
PROVIDERS: Emergency Medicine; Physician Assistant; Emergency Provider Internal Medicine; PCP Family Medicine
DX: R31.9 Hematuria, unspecified (principal); R93.5 Abnormal findings on diagnostic imaging of other abdominal regions, including retroperitoneum; Z79.01 Long term (current) use of anticoagulants; I10 Essential (primary) hypertension; Z87.891 Personal history of nicotine dependence
CPT/HCPCS: 51702; 74177; 80053; 81001; 85025; 85610; 87086; 96360; 99285; 99291; 99292; J7030; Q9967

== ENCOUNTER → 2023-03-10 12:31 | Outpatient (BNVA) | payer MEDICARE, OTHER, SELFPAY | PROVIDERS: PCP Family Medicine; Visit Provider Family Medicine | DX: D64.9 Anemia, unspecified (principal); R31.9 Hematuria, unspecified | CPT/HCPCS: 80048; 85025 ==

== ENCOUNTER → 2023-03-29 10:51 | Outpatient (BNVA) | payer MEDICARE, OTHER, SELFPAY | PROVIDERS: PCP Family Medicine; Visit Provider Nurse Practitioner Family | DX: I48.0 Paroxysmal atrial fibrillation (principal); I10 Essential (primary) hypertension; Z87.891 Personal history of nicotine dependence; Z79.01 Long term (current) use of anticoagulants | CPT/HCPCS: 99213 ==

== ENCOUNTER → 2023-04-12 08:57 | Outpatient (BNVA) | payer MEDICARE, OTHER, SELFPAY | PROVIDERS: PCP Family Medicine; Visit Provider Nurse Practitioner Family | DX: L57.0 Actinic keratosis (principal); L82.0 Inflamed seborrheic keratosis; D22.5 Melanocytic nevi of trunk; L57.8 Other skin changes due to chronic exposure to nonionizing radiation; L82.1 Other seborrheic keratosis; L81.4 Other melanin hyperpigmentation | CPT/HCPCS: 17000; 17110; 99213 ==

== ENCOUNTER → 2023-06-09 15:46 | Outpatient (BNVA) | payer MEDICARE, OTHER, SELFPAY | PROVIDERS: PCP Family Medicine; Visit Provider Family Medicine | DX: R31.9 Hematuria, unspecified (principal) | CPT/HCPCS: 81000 ==

== ENCOUNTER → 2023-06-23 08:44 | Outpatient (BNVA) | payer OTHER, MEDICARE, SELFPAY | PROVIDERS: PCP Family Medicine; Visit Provider Family Medicine | DX: I10 Essential (primary) hypertension (principal); I48.0 Paroxysmal atrial fibrillation; D64.9 Anemia, unspecified | CPT/HCPCS: 80053; 80061; 84153; 85025 ==

== ENCOUNTER → 2023-07-27 11:05 | Outpatient (BNVA) | payer MEDICARE, OTHER, SELFPAY | PROVIDERS: PCP Family Medicine; Visit Provider Nurse Practitioner Family | DX: I48.0 Paroxysmal atrial fibrillation (principal); Z79.01 Long term (current) use of anticoagulants | CPT/HCPCS: 99213 ==

== ENCOUNTER → 2023-10-25 13:11 | Outpatient (BNVA) | payer MEDICARE, OTHER, SELFPAY | PROVIDERS: PCP Family Medicine; Visit Provider Internal Medicine | DX: I48.0 Paroxysmal atrial fibrillation (principal); I10 Essential (primary) hypertension; Z87.891 Personal history of nicotine dependence | CPT/HCPCS: 99214 ==

== ENCOUNTER 2023-11-16 07:29 | Outpatient (CLI) | payer MEDICARE, OTHER, SELFPAY ==
--- NOTE | 2023-11-16 07:45 | USCV_ITS ---
Reji Fuentes Age: 68 Gender: M : 1955 Exam Date: 11/16/2023 07:52 Ordering Phys: Jake Nick M.D ([email or web address]) Technologist: [place] [facility] [place]: sob murmur BP: 140 / 80 HR: 111 Rhythm: Sinus Technical Quality: Adequate MEASUREMENTS (Male / Female) Normal Values 2D ECHO LV Diastolic Diameter PLAX 3.8 cm 4.2 - 5.9 / 3.9 - 5.3 cm IVS Diastolic Thickness 2.0 cm 0.6 - 1.0 / 0.6 - 0.9 cm IVS Systolic Thickness 1.9 cm LVPW Diastolic Thickness 1.4 cm 0.6 - 1.0 / 0.6 - 0.9 cm LVPW Systolic Thickness 2.4 cm LVOT Diameter 2.4 cm LV Ejection Fraction 2D Teich 61.1 % LV Ejection Fraction MOD 4C 61.0 % LA Diameter 4.3 cm RA Systolic Volume 4C AL 54.7 ml RA Systolic Volume 4C MOD 50.4 ml Aorta at Sinotubular Diameter 3.8 cm M-MODE LA Ao Ratio MM 0.9 AV Cusp Separation MM 2.6 cm DOPPLER AV Peak Velocity 127.0 cm/s LVOT Peak Velocity 88.0 cm/s AV Area Cont Eq vti 4.8 cm squared AV Area Cont Eq pk 3.0 cm squared MV Peak Velocity 105.0 cm/s MV Area PHT 2.5 cm squared Mitral E to A Ratio 1.0 TR Peak Velocity 86.0 cm/s TR Peak Gradient 3.0 mmHg TV Peak E Velocity 75.0 cm/s Right Atrial Pressure 3.0 mmHg Pulmonary Artery Systolic Pressu 6.0 mmHg FINDINGS Left Ventricle Left ventricle is normal in size. LV systolic function is normal with EF of 55 to 60%. No regional wall motion abnormalities are seen. Right Ventricle The right ventricle is normal in size and function. Right Atrium The right atrium is normal in size. Left Atrium The left atrium is normal in size. Mitral Valve Structurally normal mitral valve. Mild mitral regurgitation. Aortic Valve Aortic valve is thickened. No significant stenosis. Mild aortic regurgitation. Tricuspid Valve Insufficient TR jet to calculate RVSP. Pulmonic Valve Trace pulmonic regurgitation. Pericardium Normal pericardium without effusion. Aorta Ascending aorta is dilated with diameter of 3.9 cm IVC The inferior vena cava appears normal. CONCLUSIONS LV systolic function is normal with EF of 55 to 60%. Mild mitral regurgitation. Mild aortic regurgitation Trace pulmonic regurgitation Ascending aorta is dilated with diameter of 3.9 cm Compared to prior echocardiogram from 2021, patient has mild aortic regurgitation and mildly dilated ascending aorta. Jake Nick MD (Electronically Signed) Final Date: 21 November 2023 17:16 S
== END 2023-11-16 07:30 | disposition home or self-care (01) ==
LOC: RAD 07:33
PROVIDERS: PCP Family Medicine; Visit Provider Internal Medicine
DX: I35.0 Nonrheumatic aortic (valve) stenosis (principal); R06.02 Shortness of breath
CPT/HCPCS: 93306

== ENCOUNTER → 2023-12-22 09:33 | Outpatient (BNVA) | payer MEDICARE, OTHER, SELFPAY | PROVIDERS: PCP Family Medicine; Visit Provider Nurse Practitioner Family | DX: I48.0 Paroxysmal atrial fibrillation (principal); I48.20 Chronic atrial fibrillation, unspecified; I45.10 Unspecified right bundle-branch block; R94.31 Abnormal electrocardiogram [ECG] [EKG] | CPT/HCPCS: 93005; 99213 ==

== ENCOUNTER → 2023-12-29 10:09 | Outpatient (BNVA) | payer MEDICARE, OTHER, SELFPAY | PROVIDERS: PCP Family Medicine; Visit Provider Nurse Practitioner Family | DX: R07.9 Chest pain, unspecified (principal); I48.91 Unspecified atrial fibrillation; I44.5 Left posterior fascicular block | CPT/HCPCS: 93005 ==

== ENCOUNTER 2024-01-06 11:22 | Outpatient (CLI) | payer MEDICARE, OTHER, SELFPAY ==
--- NOTE | 2024-01-06 11:35 | ECG_ITS ---
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[id number] Requested By: Jake Nick Order Number: [id number] Reading MD: SARAH APONTE Measurements Intervals [place] Rate: 90 P: 0 CO: 0 QRS: -37 QRSD: 112 T: 40 QT: 379 QTc: 466 Interpretive Statements ATRIAL FIBRILLATION LEFT AXIS DEVIATION [QRS AXIS < -30] MODERATE INTRAVENTRICULAR CONDUCTION DELAY [110+ ms QRS DURATION] Compared to ECG 12/29/2023 10:13:12 Intraventricular conduction delay now present Myocardial infarct finding no longer present Electronically Signed On 01-07-2024 18:15:08 CDT by SARAH APONTE [email or web address]
[2024-01-06 11:45] VITALS: BP 142/81; PULSE 80; RESP 18; TEMP 36.2; O2SAT 97
--- NOTE | 2024-01-06 11:54 | P.ANESASSM_ITS ---
Pre-Anesthetic Assessment Height/Weight: Height 6 ft 4 in Weight 310 lb Temp Pulse Resp BP Pulse Ox O2 Del Method 97.2 F L 80 18 142/81 97 Room Air 01/06/24 11:45 01/06/24 11:45 01/06/24 11:45 01/06/24 11:45 01/06/24 11:45 01/06/24 11:45 Preop Diagnosis: A-fib Operation Date: 01/06/24 12:30 Proposed Procedures p Cardioversion(Not Applicable) - Keron Diana Beta Barbara taken within 24 hours: N/A Was Clonidine taken within 24 hours: N/A Last intake: Intake Last Liquid Date 01/06/24 Last Liquid Time 08:00 Last Solid Date 01/05/24 Last Solid Time 20:00 Social No alcohol and No tobacco Exam alert, oriented x 3, clear to auscultation bilaterally and regular rate & rhythm Airway Submandibular: within normal limits Cervical ROM: within normal limits Mallampati: Class III Dentition: full Anesthetic Plan ASA status: 3 Anesthesia: MAC Other: No prior issues with anesthesia NPO since yesterday RUFINA on CPAP Successful cardioversion 2 years ago, went back into A-fib a month ago, plan for cardioversion today. Preop BP 142/81 Echo 10/2023 showing EF 55 to 60% On chronic Eliquis, taken today Plan for MAC anesthesia Medications/Allergies Home Medications Medication Instructions Recorded Confirmed Last Taken Type cetirizine 10 mg tablet 10 mg PO DAILY 02/17/22 01/04/24 01/06/24 History azelastine 137 mcg (0.1 %) nasal 2 spray intranasal DAILY PRN 04/19/22 01/04/24 01/06/24 History spray allergies multivit with minerals-folic 1 cap PO DAILY 05/19/22 01/04/24 01/06/24 History acid-lycopene 0.4 mg-600 mcg capsule (Men's Daily) mv-mn-folic 200 mcg-vit K 15 1 cap PO BID 02/03/23 01/04/24 01/06/24 History mcg-lutein 5 mg-zeaxanthin 1 mg capsule (PreserVision AREDS 2 Plus Multivit) apixaban 2.5 mg tablet 2.5 mg PO BID #180 tabs 03/29/23 01/04/24 01/06/24 Rx ascorbic acid (vitamin C) 500 mg 500 mg PO DAILY 10/25/23 01/04/24 01/06/24 History tablet cholecalciferol (vitamin D3) 125 125 mcg PO DAILY 10/25/23 01/04/24 01/06/24 History mcg (5,000 unit) capsule lisinopril 20 mg tablet 20 mg PO BID #180 tabs 10/25/23 01/04/24 01/06/24 Rx amiodarone 200 mg tablet 200 mg PO DAILY #60 tabs 12/22/23 01/04/24 01/06/24 Rx amlodipine 10 mg tablet 10 mg PO BID 01/04/24 01/04/24 01/06/24 History Allergies Allergy/AdvReac Type Severity Reaction Status Date / Time No Known Allergies Allergy Verified 12/29/23 09:52 [facility] Anesthesia Medical History Anticoagulation adequate with anticoagulant therapy HTN (hypertension) Surgical History No pertinent past surgical history Social History Smoking and tobacco/nicotine status: former use of tobacco/nicotine Alcohol intake: never Substance/Drug Use: never Data Anesthesia Cardiac Studies: Echocardiogram 11/16/23 Transesophageal Echocardiogram 05/21/22
[2024-01-06] MEDS: sodium chloride 0.9% 1,000 ML 30 ML IV (12:02)
--- NOTE | 2024-01-06 13:04 | W.PM.OPSUD ---
Surgery/Procedure H&P Update DATE OF PROCEDURE: January 06, 2024 DATE H&P PERFORMED: 12/29/23 H&P UPDATE INFORMATION: I have reviewed H&P completed within last 30 days, I have examined patient prior to procedure and No changes to prior documentation PREOP DIAGNOSIS: A-fib PRIMARY INDICATION FOR PROCEDURE: Atrial fibrillation uncontrolled Will proceed with cardioversion, patient has been confirmed to consistently on anticoagulation apixaban for last at least 6-month without interruption PLANNED PROCEDURE: Operation Date: 01/06/24 12:30 Proposed Procedures p Cardioversion(Not Applicable) - Jake Nick M.D See anesthesia OTHER PERTINENT EXAM FINDINGS: GENERAL: Patient is alert, awake and oriented x3. NECK: No jugular vein distension. HEENT: No cyanosis. No icterus. No pallor. HEART: Irregularly irregular S1 and S2. No murmur, rub or gallop. LUNGS: Clear to auscultate bilaterally. ABDOMEN: Soft, nontender and nondistended. Positive bowel sounds. No guarding, rebound or tenderness. CENTRAL NERVOUS SYSTEM: Grossly nonfocal. EXTREMITIES: Lower extremities with out edema bilaterally.
--- NOTE | 2024-01-06 13:27 | PM.ACPR ---
Procedure/Consent Time out: Time Out Performed: Yes Consent: Consent for Procedure: Consent obtained from patient, Risks & Benefits reviewed and Agrees to proceed with procedure Additional Consent Information: Indication: Uncontrolled atrial fibrillation Procedure: DC cardioversion under anesthesia Procedure Narrative: After carefully explaining all risk-benefit and alternative for the procedure. Informed consent was obtained from the patient. Anesthesia examined patient separately and documented their consent. Patient was administered propofol by anesthesia colleague, please see in detail anesthesia documentation. After confirming deep sedation. Patient was shocked with 120 J which remains unsuccessful, 200 J of biphasic defibrillation was delivered second time, patient converted to sinus rhythm. He recovered without any complication. Acute Procedures Epistaxis Control: Time out performed: Yes
[2024-01-06 13:29] VITALS: BP 105/57; PULSE 52; RESP 18; TEMP 36.2; O2SAT 95
[2024-01-06 13:45] VITALS: BP 125/68; PULSE 50; RESP 18; O2SAT 95
[2024-01-06 14:01] VITALS: BP 110/67; PULSE 50; RESP 18; O2SAT 96
== END 2024-01-06 14:15 | disposition home or self-care (01) ==
PROVIDERS: Internal Medicine Cardiovascular Disease; PCP Family Medicine; Visit Provider Internal Medicine
PROC: 5A2204Z Restoration of Cardiac Rhythm, Single (ICD-10-PCS; principal; 2024-01-06 12:30)
DX: I48.0 Paroxysmal atrial fibrillation (principal); G47.33 Obstructive sleep apnea (adult) (pediatric); Z99.89 Dependence on other enabling machines and devices; Z79.01 Long term (current) use of anticoagulants; I10 Essential (primary) hypertension; Z87.891 Personal history of nicotine dependence
CPT/HCPCS: 92960; 93005; J2704; J3490; J7030

== ENCOUNTER → 2024-01-09 13:50 | Outpatient (BNVA) | payer MEDICARE, OTHER, SELFPAY | PROVIDERS: PCP Family Medicine; Visit Provider Nurse Practitioner Family | DX: I48.0 Paroxysmal atrial fibrillation (principal); R00.1 Bradycardia, unspecified; R94.31 Abnormal electrocardiogram [ECG] [EKG]; I45.9 Conduction disorder, unspecified | CPT/HCPCS: 93005; 99213 ==

== ENCOUNTER → 2024-02-23 11:40 | Outpatient (BNVA) | payer MEDICARE, OTHER, SELFPAY | PROVIDERS: PCP Family Medicine; Visit Provider Family Medicine | DX: R31.9 Hematuria, unspecified (principal) | CPT/HCPCS: 81000; 87086 ==

== ENCOUNTER → 2024-03-09 15:34 | Outpatient (BNVA) | payer MEDICARE, OTHER, SELFPAY | PROVIDERS: PCP Family Medicine; Visit Provider Emergency Medicine | DX: J06.9 Acute upper respiratory infection, unspecified (principal) | CPT/HCPCS: 87400; 87426 ==

== ENCOUNTER → 2024-05-03 13:29 | Outpatient (BNVA) | payer MEDICARE, OTHER, SELFPAY | PROVIDERS: PCP Family Medicine; Visit Provider Nurse Practitioner Family | DX: L30.0 Nummular dermatitis (principal); D22.5 Melanocytic nevi of trunk; L57.8 Other skin changes due to chronic exposure to nonionizing radiation; L82.1 Other seborrheic keratosis; L81.4 Other melanin hyperpigmentation; L57.0 Actinic keratosis | CPT/HCPCS: 17000; 99213 ==

== ENCOUNTER → 2024-07-24 14:30 | Outpatient (BNVA) | payer MEDICARE, OTHER, SELFPAY | PROVIDERS: PCP Family Medicine; Visit Provider Internal Medicine | DX: I48.0 Paroxysmal atrial fibrillation (principal); Z79.01 Long term (current) use of anticoagulants; I10 Essential (primary) hypertension; Z87.891 Personal history of nicotine dependence; I35.1 Nonrheumatic aortic (valve) insufficiency | CPT/HCPCS: 99214 ==

== ENCOUNTER → 2024-08-24 08:17 | Outpatient (BNVA) | payer MEDICARE, OTHER, SELFPAY | PROVIDERS: PCP Family Medicine | DX: R39.9 Unspecified symptoms and signs involving the genitourinary system (principal) | CPT/HCPCS: 81000 ==

== ENCOUNTER 2024-08-31 11:39 | Outpatient (CLI) | payer MEDICARE, OTHER, SELFPAY ==
--- NOTE | 2024-08-31 12:00 | USCV_ITS ---
Reji Meléndez Age: 69 Gender: M : 1955 Exam Date: 08/31/2024 12:24 Ordering Phys: Jake Nick M.D ([email or web address]) Technologist: Cecilio Johnson Exam Location: [facility] Indication: ao regurg BP: 142 / 72 HR: 51 Rhythm: Sinus Technical Quality: Adequate MEASUREMENTS (Male / Female) Normal Values 2D ECHO LV Diastolic Diameter PLAX 5.0 cm 4.2 - 5.9 / 3.9 - 5.3 cm IVS Diastolic Thickness 1.5 cm 0.6 - 1.0 / 0.6 - 0.9 cm IVS Systolic Thickness 2.0 cm LVPW Diastolic Thickness 2.1 cm 0.6 - 1.0 / 0.6 - 0.9 cm LVPW Systolic Thickness 3.0 cm LVOT Diameter 2.0 cm LV Ejection Fraction 2D Teich 62.4 % LV Ejection Fraction MOD 4C 69.4 % LV Ejection Fraction MOD 2C 60.9 % LV Ejection Fraction 2C AL 61.1 % LA Diameter 4.3 cm RA Systolic Volume 4C AL 50.7 ml RA Systolic Volume 4C MOD 47.3 ml LA Sys Volume AL 60.5 cm cubed LA Sys Volume Index AL 20.6 cm cubed/m squared Aorta at Sinotubular Diameter 3.6 cm IVC Diameter 1.4 cm M-MODE LA Ao Ratio MM 1.2 AV Cusp Separation MM 2.2 cm DOPPLER AV Peak Velocity 133.0 cm/s LVOT Peak Velocity 110.0 cm/s AV Area Cont Eq vti 2.5 cm squared AV Area Cont Eq pk 2.6 cm squared MV Peak Velocity 90.0 cm/s MV Area PHT 4.2 cm squared Mitral E to A Ratio 0.9 TV Peak Velocity 318.0 cm/s TR Peak Velocity 435.0 cm/s TR Peak Gradient 75.7 mmHg TR Mean Velocity 371.0 cm/s TR Mean Gradient 56.2 mmHg TR Velocity Time Integral 156.7 cm PV Peak Velocity 100.0 cm/s RV Ejection Time 0.3 s FINDINGS Left Ventricle Left ventricle is normal in size. LV systolic function is normal with EF 55 to 60%. No regional wall motion abnormalities are seen. Moderate left ventricular hypertrophy. Grade 1 diastolic dysfunction. Right Ventricle Normal in size and function Right Atrium Normal in size Left Atrium Normal in size Mitral Valve Structurally normal mitral valve. Mild mitral regurgitation. Aortic Valve Aortic valve is thickened. No significant stenosis. Mild aortic regurgitation. Tricuspid Valve Mild tricuspid regurgitation.Insufficient TR jet to calculate RVSP Pulmonic Valve Trace pulmonic regurgitation. Pericardium Normal Aorta Ascending aorta is dilated with diameter of 3.95 cm. IVC Appears to be normal CONCLUSIONS LV systolic function is normal with EF of 55-60% Moderate left ventricular hypertrophy Grade 1 diastolic dysfunction Mild mitral regurgitation Mild aortic regurgitation Mild tricuspid regurgitation Trace pulmonic regurgitation Ascending aorta is dilated with diameter of 3.95 cm. Jake Nick MD (Electronically Signed) Final Date: 16 September 2024 13:59 S
== END 2024-08-31 11:40 | disposition home or self-care (01) ==
PROVIDERS: PCP Family Medicine; Visit Provider Internal Medicine
DX: I35.1 Nonrheumatic aortic (valve) insufficiency (principal); R93.1 Abnormal findings on diagnostic imaging of heart and coronary circulation; I34.0 Nonrheumatic mitral (valve) insufficiency; I35.8 Other nonrheumatic aortic valve disorders; I07.1 Rheumatic tricuspid insufficiency
CPT/HCPCS: 93306

== ENCOUNTER → 2024-09-18 08:03 | Outpatient (BNVA) | payer MEDICARE, OTHER, SELFPAY | PROVIDERS: PCP Family Medicine; Visit Provider Family Medicine | DX: I48.0 Paroxysmal atrial fibrillation (principal); D64.9 Anemia, unspecified; R35.1 Nocturia; I10 Essential (primary) hypertension | CPT/HCPCS: 80053; 80061; 84153; 85025 ==

== ENCOUNTER 2024-09-22 13:56 | Emergency (ER) | payer MEDICARE, OTHER, SELFPAY ==
--- OUTSIDE RECORDS SUMMARY | 2024-09-22 14:00 | XMS_ITS | Clinical Summary ---
Author Organization [facility] Address [address] [place] [address] Phone Care Team Providers Care Water Operator Name Role Phone Haider Abraham MD Primary Care Provider [phone] Allergies No known active allergies Medications amiodarone (CORDARONE) 100 mg Tablet Take 100 mg by mouth daily. Active metoprolol tartrate (LOPRESSOR) 25 mg tablet Take 25 mg by mouth 2 times daily. Active lisinopriL (PRINIVIL) 10 mg tablet Take 10 mg by mouth daily. Active apixaban (ELIQUIS) 5 mg tablet Take 1 Tablet (5 mg) by mouth 2 times daily. 1 Tablet 3 Active amLODIPine (NORVASC) 10 mg tablet Take 10 mg by mouth daily. Active ascorbic acid (VITAMIN C) 500 mg Tablet, Chewable Take 500 mg by mouth daily. Active azelastine (ASTELIN) 137 mcg/actuation nasal spray Administer 2 Sprays in each nostril 2 times daily. Active cetirizine (ZyrTEC) 10 mg tablet Take 10 mg by mouth daily. Active cholecalciferol , Vitamin D3, 125 mcg (5,000 unit) Capsule Take 5,000 Units by mouth daily. 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/01/2023 AF (atrial fibrillation) 03/01/2023 Benign hypertension 03/01/2023 Chronic anticoagulation 03/01/2023 Encounters Date Type Department Care Team Description 09/06/2024 Orders Only [facility] Urology- [address] [place] [phone] Bear Cates MD Gross hematuria (Primary Dx) 09/06/2024 [address] Note [address] [place] [phone] Bear Cates MD 09/05/2024 9:36 AM CDT - 09/05/2024 11:59 PM CDT Hospital Encounter [facility] [address] [place] [phone] Bear Cates MD Discharge Disposition: Home or Self Care 09/05/2024 9:00 AM CDT Office Visit [address], [address] [place] [phone] Bear Cates MD Gross hematuria (Primary Dx); Dysuria 08/29/2024 [address], [address] [place] [phone] Bear Cates MD 08/28/2024 External Device Data [facility] ABSTRACTION Provider, Abstract 08/27/[address], [address] [place] [phone] Bear Cates MD Blood in Urine; Wants Appointment from Last 3 Months Social History Tobacco Use Types Packs/Day Years Used Date Smoking Tobacco: Former Cigars Q uit: 08/30/2022 Smokeless Tobacco: Never Tobacco Cessation:Counseling Given: No Alcohol Use Standard Drinks/Week Comments Never 0 (1 standard drink = 0.6 oz pur e alcohol) Feeling Safe Answer Date Recorded Are you in a relationship wi th someone who hurts you emotionally and/or physically? No 03/01/2023 Food Insecurity Answer Date Recorded Social/Environmental Concerns No concerns Transportation Needs Answer Date Record ed Social/Environmental Concerns No concerns Housing Stability Answer Date Recorded Social/Environmental Concerns No concerns Utility Needs Answer Date Recorded Social/Environmental Concerns No concerns Sex and Gender Information Value Date Recorded Sex Assigned at Male 09/06/2024 12:59 PM CDT Legal Sex Male 2:46 AM [employer] Gender Identity Male 09/06/2024 12:59 PM CDT Sexual Orientation Asexual 09/06/2024 12 :59 PM CDT Last Filed Vital Signs Vital Sign Reading Time Taken Comments Blood Pressure 148/85 03/04/2023 7:10 AM [employer] Pulse 72 03/04/2023 7:10 AM [employer] Temperature 36.7 C (98.1 F) 03/04/2023 7:10 AM [employer] Respiratory Rate 16 03/04/2023 7:10 AM [employer] Oxygen Saturation 95% 03/04/2023 7:10 AM [employer] Inhaled Oxygen Concentration - - Weight 149.7 kg (330 lb) 04/01/2023 9:33 AM [employer] Height 193 cm (6' 4 ) 04/01/2023 9:33 AM [employer] Body Mass Index 40.17 04/01/2023 9:33 AM [employer] Plan of Treatment Upcoming Encounters Date Type Department Care Team (Latest Contact Info) Description 09/25/2024 9:23 AM CDT Hospital Encounter [facility] [place] [address] Bear Cates MD [address] [phone] Gross hematuria 09/25/2024 9:23 AM CDT - 09/25/2024 10:46 AM CDT Surgery [facility] [place] [address] Bear Cates MD [address] [phone] CYSTOURETHROSCOPY Scheduled Procedures Name Priority Associated Diagnoses Date/Ti me CYSTOURETHROSCOPY Gross hematuria 09/25/2024 9:23 AM CDT CYSTOURETHROSCOPY WITH BLADD ER BIOPSY Gross hematuria 09/25/2024 9:23 AM CDT CYSTOURETHROSCOPY BLADDER FULGURATION Gross hematuria 09/25/2024 9:23 AM CDT Health Maintenance Due Date Last Done Comments DTAP/TDAP/TD VACCINES (1 - Tdap) 01/29/1972 COLORECTAL SCREENING 1998 Colorectal Cancer Screening 1998 FIT-DNA Q 3 years 1998 FIT/FOBT Q 1 year 1998 Flex Sig/CT Colonography Q 5 years 1998 PNEUMOCOCCAL VACCINE 50+ YEA RS (1 of 1 - PCV) 2003 ZOSTER VACCINE (1 of 2) 2003 Abdominal Aortic Aneurysm (A AA) Screening 2018 COVID-19 Vaccine ( - season) 2023 04/07/2021, 05/28/2020, 04/30/2020 INFLUENZA VACCINE (#1) 2024 RSV VACCINE (60+ or ) (1 - 1-dose 75+ series) 01/29/2028 Procedures Procedure Name Priority Date/Time Associated Diagnosis Comments CT URINARY CALCULI WO CONTRAST Stat 09/05/2024 9:57 AM CDT Gross hematuria Dysuria POC URINALYSIS MICROSCOPY ONLY Routine 09/05/2024 8:56 AM CDT Gross hematuria Dysuria POC URINALYSIS DIPSTICK AUTOMATED Routine 09/05/2024 8:55 AM CDT Gross hematuria Dysuria from Last 3 Months Results * CT URINARY CALCULI WO CONTRAST (09/05/2024 9:57 AM CDT) Anatomical Region Laterality Modality Abdomen Computed Tomogra phy 09/05/2024 9:48 AM CDT Impressions 09/05/2024 10:23 AM CDT IMPRESSION: Please see below. Exam: CT URINARY CALCULI WO CONTRAST Date/Time of Exam: 09/05/2024 9:57 AM Reason For Exam: hematuria Diagnosis: Gross hematuria; Dysuria Technique: CT imaging was performed of the pelvis for urinary calculi without the administration of intravenous contrast. Findings: No comparison. ABDOMEN/PELVIS: Lower thorax demonstrates no acute findings. No pleural fluid collection. There is hepatomegaly measuring 23 cm. No concerning hepatic lesions. The gallbladder contains cholelithiasis without acute cholecystitis. No biliary duct dilatation. The pancreas is unremarkable. The spleen is unremarkable. Adrenal glands are unremarkable. Bilateral kidneys are normal in size. There is a soft tissue density structure at the interpolar region left kidney (series 5 image 243) 2.8 x 3.8 x 3.5 cm, this favors a variant column of Dereck is a completely characterize without the use of IV contrast. There is additional cyst at the anterior interpolar region of left kidney measuring 2.1 x 1.8 cm consistent with Bosniak I cyst. Urinary bladder is distended with a large diverticulum lateral aspect of the urinary bladder (series 5 image 102) measuring 5.3 x 7.3 cm. Additional smaller diverticulum right posterior lateral aspect of the bladder containing a 4 mm bladder calculus (series 5 image 47). There is moderate prostamegaly. Some vesicles unremarkable. The aorta and IVC demonstrates no acute findings. No enlarged lymph nodes. The stomach, duodenal sweep, small and large loops normal in caliber without obstruction. The appendix appears normal. There is colonic diverticulosis with active mild diverticulitis involving the splenic flexure of colon (series 5 image 131) without evidence of pericolonic abscess or perforation. No ascites or free air. Fat-containing umbilical hernia without incarceration change. No acute osseous abnormality. IMPRESSION: 1. Active mild diverticulitis involving the splenic flexure of the colon. No evidence of perforation or abscess. Correlation needed. 2. Prostamegaly with sequela of chronic outlet obstruction with large bladder diverticulum. There is at least one bladder calculus present. 3. Bilateral kidneys appear normal in size of hydronephrosis or nephrolithiasis. Indeterminate lesion of the left kidney favoring a column of Dereck, solid neoplasm cannot be fully excluded without use IV contrast. A follow-up MRI abdomen with contrast recommended for definitive baseline characterization. Narrative Procedure Note Etienne Adams MD - 09/05/2024 IMPRESSION: Please see below. Exam: CT URINARY CALCULI WO CONTRAST Date/Time of Exam: 09/05/2024 9:57 AM Reason For Exam: hematuria Diagnosis: Gross hematuria; Dysuria Technique: CT imaging was performed of the pelvis for urinary calculi without the administration of intravenous contrast. Findings: No comparison. ABDOMEN/PELVIS: Lower thorax demonstrates no acute findings. No pleural fluid collection. There is hepatomegaly measuring 23 cm. No concerning hepatic lesions. The gallbladder contains cholelithiasis without acute cholecystitis. No biliary duct dilatation. The pancreas is unremarkable. The spleen is unremarkable. Adrenal glands are unremarkable. Bilateral kidneys are normal in size. There is a soft tissue density structure at the interpolar region left kidney (series 5 image 243) 2.8 x 3.8 x 3.5 cm, this favors a variant column of Dereck is a completely characterize without the use of IV contrast. There is additional cyst at the anterior interpolar region of left kidney measuring 2.1 x 1.8 cm consistent with Bosniak I cyst. Urinary bladder is distended with a large diverticulum lateral aspect of the urinary bladder (series 5 image 102) measuring 5.3 x 7.3 cm. Additional smaller diverticulum right posterior lateral aspect of the bladder containing a 4 mm bladder calculus (series 5 image 47). There is moderate prostamegaly. Some vesicles unremarkable. The aorta and IVC demonstrates no acute findings. No enlarged lymph nodes. The stomach, duodenal sweep, small and large loops normal in caliber without obstruction. The appendix appears normal. There is colonic diverticulosis with active mild diverticulitis involving the splenic flexure of colon (series 5 image 131) without evidence of pericolonic abscess or perforation. No ascites or free air. Fat-containing umbilical hernia without incarceration change. No acute osseous abnormality. IMPRESSION: 1. Active mild diverticulitis involving the splenic flexure of the colon. No evidence of perforation or abscess. Correlation needed. 2. Prostamegaly with sequela of chronic outlet obstruction with large bladder diverticulum. There is at least one bladder calculus present. 3. Bilateral kidneys appear normal in size of hydronephrosis or nephrolithiasis. Indeterminate lesion of the left kidney favoring a column of Dereck, solid neoplasm cannot be fully excluded without use IV contrast. A follow-up MRI abdomen with contrast recommended for definitive baseline characterization. us Bear Cates MD CT ORDERABLES Final Resu lt * (ABNORMAL) POC URINALYSIS MICROSCOPY ONLY (09/05/2024 8:56 AM CDT) WBC UA POC 0-2 0 - 2 /hpf [facility] [place] RBC UA POC >100(A) 0 - 2 /hpf [facility] [place] BACTERIA UA POC Negative Negative /hpf [facility] [place] YEAST POC [facility] TRICHOMONAS [facility]OC [facility] [place] SPERMATOZOA POC [facility] [place] HY[facility]INE CAST POC [facility] [place] RBC CAST POC [facility] GRANULAR CAST POC [facility] AMORPHOUS CRYSTAL POC [facility] TRIPLE PHOS POC [facility] URIC ACID CRYSTAL POC [facility] CALCIUM OXALATE, URINE POC [facility] COMMENT, URINE POC [facility] EPITHELIAL CELLS UA POC [facility] Urine 09/05/2024 8:56 AM CDT us Bear Cates MD POINT OF CARE TESTING Lily navas Result [facility] CLIA# [id number] [address] [place] [address], [place] * (ABNORMAL) POC URINALYSIS DIPSTICK AUTOMATED (09/05/2024 8:55 AM CDT) COLOR UA POC Brown(A) Pale to Dark Yellow [facility] CLARITY UA POC Turbid(A) Clear, Other ME [facility] GLUCOSE UA POC Negative Negative, Normal [facility] BILIRUBIN UA POC Negative Negative [facility] KETONES UA POC Negative Negative [facility] SPECIFIC GRAVITY UA POC 1.020 1.000 - 1.030 [facility] BLOOD UA POC 3+(A) Negative [facility] PH UA POC 5.5 5.0 - 8.0 [facility] PROTEIN UA POC 1+(A) Negative [facility] [place] UROBILINOGEN UA POC 0.2 <2.0 mg/dL [facility] [place] NITRITE UA POC Negative Negative [facility] [place] LEUKOCYTE ESTERASE UA POC Trace(A) Negative [facility] [place] KIT LOT NUMBER POC [id number] [facility] [place] KIT EXP DATE POC 4.30.26 [facility] [place] Urine 09/05/2024 8:55 AM CDT us Bear Cates MD POINT OF CARE TESTING Lily navas Result [facility] CL[facility] [id number] [address] [place] [address], from Last 3 Months Insurance MEDICARE PART A AND B [facility] Advance Directives For more information, please contact: [phone] * Full Code (Latest Code Status on File) Date Activated Date Inactivated Comments 03/03/2023 11:56 AM 03/04/2023 1:52 PM Care Teams Water Operator Relationship Specialty Start Date End Date Haider Abraham MD [address] [place] [address] PCP - General Family Practice 03/02/23
[2024-09-22 14:01] VITALS: BP 160/63; PULSE 66; RESP 18; TEMP 36.7; O2SAT 96; BMI 40.1
[2024-09-22 14:26] LABS: Add Urine Microscopic? YES; Glucose Urine UA Norm (Normal); Nitrate Urine Positive (Negative); Specific Gravity, Urine 1.025 (1.005-1.030)
[2024-09-22 14:27] LABS: UA Manual Slide Review YES
[2024-09-22 15:02] LABS: Hematocrit 40.7 % (37-53); Hemoglobin 13.70 g/dL (11.27-16.99); Mean Corpuscular HGB Conc 33.7 g/dL (30-55); Mean Corpuscular Hemoglobin 31.6 pg (27-33); Mean Corpuscular Volume 93.8 fl (82-101); Nucleated Red Blood Cells % 0 %; Platelet Count 192 10^3/cmm (157-399); Red Blood Count 4.34 10^6/uL (3.85-5.65); White Blood Count 6.44 10^3/uL (3.29-11.43)
[2024-09-22 15:21] LABS: Alanine Aminotransferase 16 U/L (0-41); Albumin Level 4.1 g/dL (3.5-5.2); Alkaline Phosphatase 74 U/L (40-130); Anion Gap 17.9 (5-19); Aspartate Amino Transferase 14 U/L (0-40); Blood Urea Nitrogen 18 mg/dL (8-23); Calcium 9.0 mg/dL (8.5-10.5); Carbon Dioxide 21 mmol/L (22-29); Chloride 103 mmol/L (98-107); Creatinine Clr Calc Pharmacy 97.5357; Globulin 3.0 g/dL (1.3-4.6); Glucose 116 mg/dL (65-115); Osmolality Calculated 289 mOsm/kg (285-295); Potassium 3.9 mmol/L (3.5-5.1); Sodium 138 mmol/L (136-145); Total Protein 7.1 g/dL (6.6-8.7)
[2024-09-22 16:23] VITALS: BP 159/78; O2SAT 97
--- NOTE | 2024-09-22 16:41 | ED_ITS ---
HPI - Male Genitourinary 2 General: Chief complaint: Urogenital-Male Stated complaint: bloody urine Time Seen by Provider: 09/22/24 15:35 History of Present Illness: 69-year-old male patient presents to the emergency department with hematuria and dysuria. Patient states that about a month ago he had a scope for the same issue and blood clots were found and cleaned out. Patient states he has been having intermittent issues with this and urology has scheduled a scope again on Tuesday. Patient states he wanted to present to the emergency department because he feels like he has developed a UTI and is bleeding when he urinates. Patient denies any fever. Patient denies any abdominal pain or flank pain or back pain. Patient is on Eliquis patient states that he is stopped Eliquis as of today as advised by his urologist prior to his procedure on Tuesday patient denies any chest pain or shortness of breath Related Data Home Medications ?Medication ?Instructions ?Recorded ?Confirmed azelastine 137 mcg (0.1 %) nasal 2 spray intranasal DA ASAD PRN 04/19/22 09/11/24 spray allergies multivit with minerals-folic 1 cap PO DAILY 05/19/22 0 09/11/24 acid-lycopene 0.4 mg-600 mcg capsule (Men's Daily) mv-mn-folic 200 mcg-vit K 15 1 cap PO BID 02/03/23 mcg-lutein 5 mg-zeaxanthin 1 mg capsule (PreserVision AREDS 2 Plus Multivit) ascorbic acid (vitamin C) 500 mg 500 mg PO DAILY 10/2409/11/24 tablet cholecalciferol (vitamin D3) 125 125 mcg PO DAILY 09/1109/11/24 mcg (5,000 unit) capsule Previous Rx's ?Medication ?Instructions ?Recorded cetirizine 10 mg tablet (Zyrtec) 10 mg PO DAILY #30 ta bs 03/09/24 amiodarone 200 mg tablet 200 mg PO DAILY #90 tabs 09/12 amlodipine 10 mg tablet See Rx Instructions .Route 0 07/24/24 .COMPLEX #90 tabs apixaban 2.5 mg tablet 2.5 mg PO BID #180 tabs 09/12 lisinopril 20 mg tablet 20 mg PO BID #180 tabs 07/24 amoxicillin 875 mg-potassium 1 tab PO BID 10 days #20 tabs 09/22/24 clavulanate 125 mg tablet Allergies Allergy/AdvReac Type Severity Reaction Status Date / Time No Known Allergies Allergy Verified 08/24/24 08:13 Review of Systems 2 General: Reports: 10 or more systems reviewed and unremarkable except in HPI and below PFSH ED 2 PFSH: Medical History Anticoagulation adequate with anticoagulant therapy HTN (hypertension) Surgical History No pertinent past surgical history Social History Smoking and tobacco/nicotine status: never used tobacco/nicotine Alcohol intake: never Substance/Drug Use: never Physical Exam 2 Narrative: EXAM NARRATIVE: Constitutional: Alert, no acute distress, well hydrated, well developed, well nourished. Skin: Normal turgor, normal color, no rashes, no lesions, no unusual bruising. Cardiovascular: RRR, no murmurs, no gallops, peripheral pulses intact, no edema. Respiratory: No respiratory distress, no accessory muscle use, clear to auscultation. Abdomen: non-distended, non-tender, normal BS, no hepatosplenomegaly, no hernias. Neuro: station & gait normal. Psych: Oriented to all spheres, affect normal. Course 2 Vital Signs: Vital signs: Vital Signs Temperature 98.1 F 09/22/24 14:01 Pulse Rate 53 L 09/22/24 18:26 Respiratory Rate 18 09/22/24 14:01 Blood Pressure 166/82 09/22/24 18:26 Pulse Oximetry 98 09/22/24 18:26 Oxygen Delivery Me thod Room Air 09/22/24 14:01 MDM - Male Medical Decision Making Patient is well-appearing nontoxic in no acute distress. 69-year-old male patient presents to the emergency department with hematuria and dysuria. Patient states that about a month ago he had a scope for the same issue and blood clots were found and cleaned out. Patient states he has been having intermittent issues with this and urology has scheduled a scope again on Tuesday. Patient states he wanted to present to the emergency department because he feels like he has developed a UTI and is bleeding when he urinates. Patient denies any fever. Patient denies any abdominal pain or flank pain or back pain. Patient is on Eliquis patient states that he is stopped Eliquis as of today as advised by his urologist prior to his procedure on Tuesday patient denies any chest pain or shortness of breath patient's labs revealed no concerning findings kidney functions are within normal limits hemoglobin and hematocrit are stable. Based on patient's urine nitrate positive I will go ahead and give him a shot of Rocephin while in the emergency department and sent home on antibiotics p.o. Patient is scheduled to have a scope done on Tuesday. Patient's abdomen is soft and nontender patient has no CVA tenderness. I did offer admission to patient but patient states that he feels appropriate to go home and that he would return to the emergency department with any worsening signs or symptoms to include inability to urinate. Patient did have a vasovagal response after his Rocephin IM injection patient was given some orange juice EKG was obtained and there was no concerning findings on EKG patient states he feels much better again I offered patient admission and patient states he feels ready to go home. Patient states he has issues with procedures and blood draws and medical things that makes him get woozy. Patient states he feels back to normal and again is requesting to go home. I advised patient he must return promptly with any worsening signs and symptoms to include inability to urinate abdominal pain fever or any other concerns. Patient has already stopped his Eliquis as of this a.m. given his upcoming procedure on Tuesday. Lab Data 09/22/24 14:56 09/22/24 14:56 Laboratory Results WBC 6.44 10^3/uL (3.29-11.43) 09/22/24 14:56 RBC 4.34 10^6/uL (3.85-5.65) 09/22/24 14:56 Hgb 13.70 g/dL (11.27-16.99) 09/22/24 14:56 Hct 40.7 % (37-53) 09/22/24 14:56 MCV 93.8 fl (82-101) 09/22/24 14:56 MCH 31.6 pg (27-33) 09/22/24 14:56 MCHC 33.7 g/dL (30-55) 09/22/24 14:56 RDW 12.7 % (12.1-15.1) 09/22/24 14:56 Plt Count 192 10^3/cmm (157-399) 09/22/24 14:56 MPV 10.7 fL (7.4-10.4) H 09/22/24 14:56 Neut % (Auto) 61.6 % 09/22/24 14:56 Lymph % (Auto) 27.0 % 09/22/24 14:56 [place] % (Auto) 8.4 % 09/22/24 14:56 Eos % (Auto) 2.0 % 09/22/24 14:56 Baso % (Auto) 0.8 % 09/22/24 14:56 Neut # (Auto) 3.97 10^3/uL (1.8-7.7) 09/22/24 14:56 Lymph # (Auto) 1.7 10^3/uL (0.8-4.8) 09/22/24 14:56 [place] # (Auto) 0.5 10^3/uL (0.2-0.9) 09/22/24 14:56 Eos # (Auto) 0.1 10^3/uL (0.0-0.8) 09/22/24 14:56 Baso # (Auto) 0.1 10^3/uL (0.0-0.1) 09/22/24 14:56 Nucleated RBC % (auto) 0 % 09/22/24 14:56 Nucleated RBCs # 0.0 /100WBC 09/22/24 14:56 Sodium 138 mmol/L (136-145) 09/22/24 14:56 Potassium 3.9 mmol/L (3.5-5.1) 09/22/24 14:56 Chloride 103 mmol/L (98-107) 09/22/24 14:56 Carbon Dioxide 21 mmol/L (22-29) L 09/22/24 14:56 Anion Gap 17.9 (5-19) 09/22/24 14:56 BUN 18 mg/dL (8-23) 09/22/24 14:56 Creatinine 1.1 mg/dL (0.7-1.2) 09/22/24 14:56 GFR Calculation Not Reportable 09/22/24 14:56 Glucose 116 mg/dL (65-115) H 09/22/24 14:56 Calculated Osmolality 289 mOsm/kg (285-295) 09/22/24 14:56 Calcium 9.0 mg/dL (8.5-10.5) 09/22/24 14:56 Total Bilirubin 0.5 mg/dL (0.15-1.2) 09/22/24 14:56 AST 14 U/L (0-40) 09/22/24 14:56 ALT 16 U/L (0-41) 09/22/24 14:56 Alkaline Phosphatase 74 U/L (40-130) 09/22/24 14:56 Total Protein 7.1 g/dL (6.6-8.7) 09/22/24 14:56 Albumin 4.1 g/dL (3.5-5.2) 09/22/24 14:56 Globulin 3.0 g/dL (1.3-4.6) 09/22/24 14:56 Urine Color Red (Yellow) A 09/22/24 14:08 Urine Appearance Turbid (CLEAR) A 09/22/24 14:08 Urine pH 6 (5-7) 09/22/24 14:08 Ur Specific [place] 1.025 (1.005-1.030) 09/22/24 14:08 Urine Protein 2+ (Negative) H 09/22/24 14:08 Urine Glucose (UA) Norm (Normal) 09/22/24 14:08 Urine Ketones Negative (Negative) 09/22/24 14:08 Urine Blood 1+ (Negative) H 09/22/24 14:08 Urine Nitrate Positive (Negative) A 09/22/24 14:08 Urine Bilirubin 2+ (Negative) H 09/22/24 14:08 Urine Urobilinogen 0.2 mg/dL (Negative) 09/22/24 14:08 Ur Leukocyte Esterase 3+ (Negative) H 09/22/24 14:08 Urine RBC Too numerous to cnt /hpf (0-2) H 09/22/24 14:08 Urine WBC 10-15 /hpf (0-5) H 09/22/24 14:08 Ur Squamous Epith Cells None /hpf (0-5) 09/22/24 14:08 Amorphous Sediment Not Reportable 09/22/24 14:08 Urine Bacteria 1+ /hpf (NONE) H 09/22/24 14:08 No radiology studies performed this visit Discharge Plan Discharge Patient Disposition: Home Clinical Impression: Urinary tract infection Qualifiers: Urinary tract infection type: acute cystitis Hematuria presence: with hematuria Qualified Code(s): N30.01 - Acute cystitis with hematuria Condition: Stable Prescriptions: New amoxicillin-pot clavulanate 875-125 mg tablet 1 tab PO BID 10 Days Qty: 20 0RF No Action azelastine 137 mcg (0.1 %) aerosol,spray 2 spray intranasal DAILY PRN (Reason: allergies) PreserVision AREDS 2 Plus MV 200 mcg-15 mcg- 5 mg-1 mg capsule 1 cap PO BID cholecalciferol (vitamin D3) 125 mcg (5,000 unit) capsule 125 mcg PO DAILY ascorbic acid (vitamin C) 500 mg tablet 500 mg PO DAILY amiodarone 200 mg tablet 200 mg PO DAILY Qty: 90 3RF amlodipine 10 mg tablet See Rx Instructions .ROUTE .COMPLEX Qty: 90 3RF Dose Instruction: TAKE 1 TABLET DAILY Rx Instructions: TAKE 1 TABLET DAILY apixaban 2.5 mg tablet 2.5 mg PO BID Qty: 180 3RF lisinopril 20 mg tablet 20 mg PO BID Qty: 180 3RF cetirizine [Zyrtec] 10 mg tablet 10 mg PO DAILY Qty: 30 0RF Men's Daily 0.4-600 mg-mcg Capsule 1 cap PO DAILY Discharge Orders: Discharge ED (Routine); Ordered 09/22/24 Ordered By: Miryam Barnard Referrals: Haider Abraham MD [Primary Care Provider, [facility]] Discharge Diet: Advance as tolerated Discharge Activity: Increase activity as tolerated Patient Instructions: Opioid Safety, Pain Management, Patient Portal & Shree Instructions Activity Restrictions/Additional Instructions: Please hold your Eliquis 1-2 days Please keep your appt with Urology on tuesday Please take meds as prescribed Please return with inability to urinate, fever, abd pain, flank pain or any other concerns Print Language: Italian Coding Level of Care Code ED Knitting Supervisor for Dorothea Le
[2024-09-22] MEDS: cefTRIAXone 1,000 MG in water for injection-sterile 2.1 ML 2.1 MG IM (16:57)
--- NOTE | 2024-09-22 17:25 | ECG_ITS ---
[facility]: 2024-[facility]-22 Pat Name: Reji Fuentes Department: Room: Gender: Male Signal Helper: : 1955 Requested By: Miryam Barnard Order Number: [id number] Charles MD: SARAH APONTE Measurements Intervals [place] Rate: 48 P: 17 LA: 148 QRS: -33 QRSD: 104 T: 1 QT: 497 QTc: 448 Interpretive Statements SINUS BRADYCARDIA LEFT AXIS DEVIATION [QRS AXIS < -30] INCOMPLETE RIGHT BUNDLE BRANCH BLOCK [90+ ms QRS DURATION, TERMINAL R IN V1/V2, 40+ ms S IN I/aVL/V4/V5/V6] PROLONGED QT INTERVAL Compared to ECG 01/09/2024 13:58:16 Incomplete right bundle-branch block now present Prolonged QT interval now present Intraventricular conduction delay no longer present Electronically Signed On 09-22-2024 20:20:23 CDT by SARAH APONTE [email or web address]
[2024-09-22 18:26] VITALS: BP 166/82; PULSE 53; O2SAT 98
== END 2024-09-22 18:27 | disposition home or self-care (01) ==
PROVIDERS: Family Medicine; Emergency Provider Registered Nurse; PCP Family Medicine
DX: N30.01 Acute cystitis with hematuria (principal); I10 Essential (primary) hypertension
CPT/HCPCS: 36415; 80053; 81001; 85025; 87086; 93005; 99284; J0696

== ENCOUNTER → 2024-10-16 12:19 | Outpatient (BNVA) | payer MEDICARE, OTHER, SELFPAY | PROVIDERS: PCP Family Medicine; Visit Provider Family Medicine | DX: N39.0 Urinary tract infection, site not specified (principal) | CPT/HCPCS: 81000; 87086 ==